=== PATIENT | female | born 1990 | race Asian ===

== ENCOUNTER → 2018-01-19 07:53 | Outpatient (CLI) | payer OTHER, SELFPAY ==
--- NOTE | 2018-01-19 07:58 | DI.RAD.S_ITS ---
PROCEDURE: HL HYSTEROSAPINGOGRAPHY INDICATIONS: INFERTILITY COMPARISON: None. FINDINGS: Patient had a documented negative test prior to the study. Following speculum insertion, a balloon-tip catheter was inserted into the cervical canal, and secured by inflating the balloon. Contrast was then injected into the endometrial canal. Uterus: The uterine cavity appears normal in size and morphology, without synechiae or masses. Fallopian tubes: Right fallopian tube is surgically absent. Left fallopian tube fills with contrast, and appears normal in caliber and morphology. There is ready dispersion of contrast into the peritoneal cavity. IMPRESSION: Surgically absent right fallopian tube. Patent left fallopian tube. Normal appearing uterine cavity. Dictated by: Sanjiv Manriquez M.D. on 01/19/2018 at 10:01 Approved by: Sanjiv Manriquez M.D. on 01/19/2018 at 10:03
--- NOTE | 2018-01-19 09:14 | PM.PROC.1 ---
Procedures Date/Time Date of procedure: 01/19/18 Time of procedure: 09:14 General Procedure description: Patient comes in for a hysterosalpingogram. She signed the consent and understands the risks and benefits. A speculum was placed in the vagina and a single-tooth tenaculum placed on the anterior lip of the cervix. Catheter was threaded through the cervix into the uterus and the balloon inflated with 2 cc of air. Under fluoroscopy the contrast dye was injected. Patient has a known loss of her right tube which was evident. Uterus contour appeared normal. There was normal flow of the dye through the left fallopian tube intra-abdominally. Patient tolerated the procedure well. Complications: none
== END ==
PROVIDERS: Visit Provider Specialist
DX: N97.9 Female infertility, unspecified (principal); Z87.59 Personal history of other complications of pregnancy, childbirth and the puerperium; Z90.79 Acquired absence of other genital organ(s)
CPT/HCPCS: 58340; 74740

== ENCOUNTER → 2018-06-22 15:23 | Outpatient (CLI) | payer OTHER, SELFPAY ==
[2018-06-26 16:30] LABS: Progesterone 3.3 ng/mL
== END ==
PROVIDERS: PCP Specialist; Visit Provider Specialist
DX: N83.9 Noninflammatory disorder of ovary, fallopian tube and broad ligament, unspecified (principal)
CPT/HCPCS: 36415; 84144

== ENCOUNTER → 2018-06-28 15:06 | Outpatient (CLI) | payer OTHER, SELFPAY ==
[2018-06-30 17:22] LABS: Progesterone 7.6 ng/mL
== END ==
PROVIDERS: PCP Specialist; Visit Provider Specialist
DX: N97.0 Female infertility associated with anovulation (principal)
CPT/HCPCS: 36415; 84144

== ENCOUNTER → 2018-07-20 10:02 | Outpatient (CLI) | payer OTHER, SELFPAY ==
[2018-07-20 11:51] LABS: Final Volume 0.5 mL; Initial Volume 3 mL; Semen 30 min. Liquification? Yes
== END ==
PROVIDERS: PCP Specialist; Visit Provider Specialist
DX: N97.0 Female infertility associated with anovulation (principal)
CPT/HCPCS: 58323

== ENCOUNTER → 2018-08-24 10:38 | Outpatient (CLI) | payer OTHER, SELFPAY ==
[2018-08-24 12:11] LABS: Final Volume 0.5 mL; Semen 30 min. Liquification? Yes
== END ==
PROVIDERS: PCP Specialist; Visit Provider Specialist
DX: N97.0 Female infertility associated with anovulation (principal)
CPT/HCPCS: 58323

== ENCOUNTER → 2018-11-17 09:43 | Outpatient (CLI) | payer OTHER, SELFPAY ==
[2018-11-17 11:17] LABS: HCG Quantitative /Beta subunit 12947 mIU/mL
== END ==
PROVIDERS: PCP Specialist; Visit Provider Specialist
DX: Z32.01 Encounter for pregnancy test, result positive (principal)
CPT/HCPCS: 36415; 84702

== ENCOUNTER → 2018-11-19 09:37 | Outpatient (CLI) | payer OTHER, SELFPAY ==
[2018-11-19 11:48] LABS: HCG Quantitative /Beta subunit 20927 mIU/mL
== END ==
PROVIDERS: PCP Specialist; Visit Provider Specialist
DX: Z32.01 Encounter for pregnancy test, result positive (principal)
CPT/HCPCS: 36415; 84702

== ENCOUNTER → 2018-12-06 14:49 | Outpatient (CLI) | payer OTHER, SELFPAY ==
[2018-12-06 15:25] LABS: Add Manual Diff / Slide Review NO; Basophils Absolute Auto 0 /uL (0-100); Basophils Percent Auto 0.4 % (0-2); Eosinophils Absolute Auto 200 /uL (0-450); Eosinophils Percent Auto 1.6 % (2-4); Hematocrit 35.9 % (36-46); Hemoglobin 12.3 g/dL (12.0-16.0); Lymphocytes Absolute Auto 1900 /uL (1100-4500); Lymphocytes Percent Auto 18.3 % (25-40); Mean Corpuscular HGB Conc 34.1 % (30-36); Mean Corpuscular Hemoglobin 31.2 PG (26-34); Mean Corpuscular Volume 91.3 fL (80-100); Monocytes Absolute Auto 800 /uL (0-900); Monocytes Percent Auto 7.5 % (3-14); Neutrophils Absolute Auto 7500 /uL (1500-7000); Neutrophils Percent Auto 72.2 % (50-75); Platelet Count 312 X10^3/uL (150-400); Red Blood Cell Count 3.93 X10^6/uL (4.0-5.2); Red Cell Distribution Width 12.5 % (11.6-14.8); White Blood Cell Count 10.3 X10^3/uL (4.5-11.0)
[2018-12-06 16:00] LABS: Appearance Urine UA CLEAR; Bilirubin Urine UA NEGATIVE (NEGATIVE); Color Urine UA YELLOW; Glucose Urine UA NEGATIVE (Negative); Ketones Urine UA NEGATIVE (NEGATIVE); Leukocyte Esterase Urine UA NEGATIVE (NEGATIVE); Nitrite Urine UA NEGATIVE (Negative); Occult Blood Urine UA TRACE-INTACT (Negative); Protein Urine UA NEGATIVE (Negative); Urobilinogen Urine UA 0.2 E.U./dL (0.2); pH Urine UA 6.5 (4.5-8.0)
[2018-12-06 16:48] LABS: Hepatitis B Surface Antigen NEGATIVE s/c (NEGATIVE); Rubella Antibody IgG 17.6 IU/mL (>15)
[2018-12-06 17:15] LABS: HIV 1 & 2 Ab/Ag 4th Gen Combo NEGATIVE (NEGATIVE); Hep C Virus Ab w/Reflex Quant NEGATIVE s/c (NEGATIVE)
[2018-12-06 17:32] LABS: Urine N gonorrhoeae NOT DETECTED
[2018-12-06 17:42] LABS: Urine Chlamydia NOT DETECTED
[2018-12-25 11:47] LABS: RPR Screen NONREACTIVE
== END ==
PROVIDERS: PCP Specialist; Visit Provider Specialist
DX: Z34.01 Encounter for supervision of normal first pregnancy, first trimester (principal)
CPT/HCPCS: 36415; 80055; 81003; 86787; 86803; 86850; 86900; 86901; 87086; 87389; 87491; 87591

== ENCOUNTER → 2018-12-14 08:08 | Outpatient (CLI) | payer OTHER, SELFPAY ==
[2018-12-14 15:11] LABS: Urine N gonorrhoeae NOT DETECTED
[2018-12-14 15:27] LABS: Urine Chlamydia NOT DETECTED
== END ==
PROVIDERS: PCP Specialist; Visit Provider Specialist
DX: Z11.3 Encounter for screening for infections with a predominantly sexual mode of transmission (principal); Z3A.09 9 weeks gestation of pregnancy
CPT/HCPCS: 87491; 87591

== ENCOUNTER → 2019-02-13 11:18 | Outpatient (CLI) | payer OTHER, SELFPAY ==
[2019-02-18 14:11] LABS: AFP, Serum 45.2 ng/mL; Cigarette Smoker N; Donated Egg N; Donor Egg Age NOT GIVEN; Estriol, Free 1.81 ng/mL; Inhibin A, Dimeric 171 pg/mL; Maternal Weight 174 lbs; Number of Fetuses 1; Previous Pregnancy Down Syndro N; hCG, MoM 0.77; hCG, Serum 18.8 IU/mL
== END ==
PROVIDERS: Visit Provider Specialist
DX: Z34.82 Encounter for supervision of other normal pregnancy, second trimester (principal)
CPT/HCPCS: 36415; 82105; 82677; 84702; 86336

== ENCOUNTER → 2019-02-27 12:09 | Outpatient (CLI) | payer OTHER, SELFPAY ==
--- NOTE | 2019-02-27 12:10 | DI.US.S_ITS ---
PROCEDURE: US OB >= 14 WEEKS FETUS INDICATIONS: ANATOMY OUTSIDE/PRIOR DATING DATA: Last menstrual period (LMP): 10/07/18. LMP-based estimated date of delivery (MINNIE): 07/14/19. First dating scan (date and location): 11/28/18. Estimated date of delivery (MINNIE) from first dating scan: 07/17/19. TECHNIQUE: Real-time scanning was performed of the fetus, with image documentation and biometric measurements. COMPARISON: [facility], [facility]ADDY, US OB > 14 WEEKS, 02/13/2019, 11:07. FINDINGS: General: A single living intrauterine gestation is present. Presentation: Transverse. Placenta: Placental position is posterior, without previa. Amniotic fluid index: 16.1 cm, normal range is 5-24 cm. heart rate: 144 beats per minute. Maternal cervical canal: 3.8 cm long. Normal lower limit is 2.5 cm. biometrics: Biparietal diameter: 20 weeks 2 days Head circumference: 20 weeks 1 day Abdominal circumference: 20 weeks 5 days Femur length: 19 weeks 5 days Estimated gestational age from initial scan: 20 weeks Composite gestational age from present scan: 20 weeks 2 days Estimated weight and percentile: 343 g; 61st percentile Measurement variability for biometric dating: +/- 7 days from 14 weeks to 15 weeks 6 days gestation, +/- 10 days from 16 weeks to 21 weeks 6 days gestation, +/- 2 weeks from 22 weeks to 27 weeks 6 days gestation, +/- 3 weeks for 28 weeks gestation or later. weight reference: 4500 g or EFW >90/95% is considered macrosomia or large for gestational age. EFW <10% is small for gestational age. EFW 5% or less is considered intra-uterine growth restriction. Anatomic survey: Neuro: Ventricles are non-dilated at less than 10 mm. Cisterna magna is normal at 3-11 mm. Cerebellum is normal in size and morphology. Nuchal skin fold: Normal at less than 6 mm between 14-21 weeks gestational age. Face: Nose and lips are normal and the facial profile is not well seen. Spine: No evidence for spina bifida. Heart: 4-chambered heart is present, and cardiac outflow tracts are not well visualized. Diaphragm: Diaphragm is intact. Stomach: Left-sided stomach is present. Kidneys: No hydronephrosis. Normal is less than 5 mm in 2nd trimester, less than 7 mm in 3rd trimester. Cord: 3-vessel cord has orthotopic insertion. Bladder: Normal in size. Extremities: All 4 extremities identified. IMPRESSION: 1. Single living IUP redemonstrated and interval growth is normal. 2. Cardiac outflow tracts and facial profile not well-visualized. Followup recommended. Dictated by: Leroy Ching [facility] Interpreted: Alison Kerr MD on 02/27/2019 at 15:10 Approved by: Alison Kerr MD, PhD on 02/27/2019 at 15:21
== END ==
PROVIDERS: Visit Provider Specialist
DX: Z36.89 Encounter for other specified antenatal screening (principal); Z34.82 Encounter for supervision of other normal pregnancy, second trimester; Z3A.20 20 weeks gestation of pregnancy
CPT/HCPCS: 76811

== ENCOUNTER → 2019-03-15 10:43 | Outpatient (CLI) | payer OTHER, SELFPAY ==
--- NOTE | 2019-03-15 10:44 | DI.US.S_ITS ---
PROCEDURE: US OB FOLLOW UP INDICATIONS: FOLLOW UP ANATOMY FOR NON-VISUALIZED STRUCTURES OUTSIDE/PRIOR DATING DATA: Last menstrual period (LMP): 10/07/18. LMP-based estimated date of delivery (MINNIE): 07/14/19. First dating scan (date and location): 11/28/18. Estimated date of delivery (MINNIE) from first dating scan: 07/17/19. TECHNIQUE: Real-time scanning was performed of the fetus, with image documentation and biometric measurements. COMPARISON: [facility], OB >= 14 WEEKS FETUS, 02/27/2019, 12:20. FINDINGS: General: A single living intrauterine gestation is present. Presentation: Vertex. Placenta: Placental position is posterior, without previa. Amniotic fluid index: 14.2 cm, normal range is 5-24 cm. heart rate: 152 beats per minute. Maternal cervical canal: 3.7 cm long. Normal lower limit is 2.5 cm. Estimated gestational age from initial scan: 22 weeks 2 days. Normal facial profile. Cardiac outflow tracts again suboptimally visualized. IMPRESSION: 1. Single living IUP redemonstrated in today's exam demonstrating normal appearance of the facial profile and the cardiac outflow tracks are again not well-visualized. Followup recommended. Dictated by: Leroy DE LEON Interpreted: Jocy Silva MD on 03/15/2019 at 11:50 Approved by: Jocy Silva M.D. on 03/15/2019 at 16:52
== END ==
PROVIDERS: Visit Provider Specialist
DX: Z36.2 Encounter for other antenatal screening follow-up (principal); Z3A.22 22 weeks gestation of pregnancy
CPT/HCPCS: 76816

== ENCOUNTER → 2019-03-29 08:55 | Outpatient (CLI) | payer OTHER, SELFPAY ==
[2019-03-29 11:22] LABS: Hematocrit 33.9 % (36-46)
[2019-03-29 11:42] LABS: GTT (PREG) 1 Hour PP 50gm Dose 185 mg/dL (76-139)
== END ==
PROVIDERS: Visit Provider Specialist
DX: Z34.82 Encounter for supervision of other normal pregnancy, second trimester (principal)
CPT/HCPCS: 36415; 82950; 85014; 85018

== ENCOUNTER → 2019-04-02 08:07 | Outpatient (CLI) | payer OTHER, SELFPAY ==
[2019-04-02 10:03] LABS: Glucose Fasting 91 mg/dL (70-100)
[2019-04-02 10:15] LABS: Glucose 1 Hour 217 mg/dL (70-170)
[2019-04-02 11:31] LABS: Glucose Tol Interpretation INTERPRETATION
[2019-04-02 11:39] LABS: Glucose 2 Hour 156 mg/dL (70-140)
[2019-04-02 12:15] LABS: Glucose 3 Hour 99 mg/dL (70-115)
== END ==
PROVIDERS: PCP Specialist; Visit Provider Specialist
DX: O99.810 Abnormal glucose complicating pregnancy (principal); Z34.92 Encounter for supervision of normal pregnancy, unspecified, second trimester; Z3A.27 27 weeks gestation of pregnancy
CPT/HCPCS: 36415; 82951; 82952

== ENCOUNTER → 2019-04-04 07:41 | Outpatient (CLI) | payer OTHER, SELFPAY ==
--- NOTE | 2019-04-04 07:43 | DI.US.S_ITS ---
PROCEDURE: OB FOLLOW UP INDICATIONS: RE-EVALUATE HEART OUTSIDE/PRIOR DATING DATA: Last menstrual period (LMP): 10/07/2018. LMP-based estimated date of delivery (MINNIE): 07/14/2019. First dating scan (date and location): 11/28/2018, [facility]. Estimated date of delivery (MINNIE) from first dating scan: 07/17/2019. TECHNIQUE: Real-time scanning was performed of the fetus, with image documentation and biometric measurements. COMPARISON: [facility], OB >= 14 WEEKS FETUS, 02/27/2019, 12:20. [facility], OB > 14 WEEKS, 02/13/2019, 11:07. [facility], OB <= 14 WEEKS FETUS, 12/14/2018, 8:16. [facility], OB <= 14 WEEKS FETUS, 11/28/2018, 16:19. [facility] OB FOLLOW UP, 03/15/2019, 10:54. FINDINGS: General: A single living intrauterine gestation is present. Presentation: Vertex Placenta: Placental position is posterior, without previa. Amniotic fluid index: 16.1 cm, normal range is 5-24 cm. heart rate: 144 beats per minute. Maternal cervical canal: C1-5 cm long. Normal lower limit is 2.5 cm. Other: The four-chamber heart and outflow tracts are normal. IMPRESSION: 1. A single living intrauterine gestation. 2. Normal four-chamber heart and ventricular outflow tracts. Dictated by: Arie Giraldo M.D. on 04/04/2019 at 11:04 Approved by: Arie Giraldo M.D. on 04/04/2019 at 11:09
== END ==
PROVIDERS: PCP Student in an Organized Health Care Education/Training Program; Visit Provider Specialist
DX: Z36.2 Encounter for other antenatal screening follow-up (principal)
CPT/HCPCS: 76816

== ENCOUNTER → 2019-06-14 09:03 | Outpatient (CLI) | payer OTHER, SELFPAY ==
[2019-06-18 15:36] LABS: Bile Acids, Total 2 umol/L (< 20)
== END ==
PROVIDERS: Referring Provider Specialist; Visit Provider Specialist
DX: O99.713 Diseases of the skin and subcutaneous tissue complicating pregnancy, third trimester (principal); L29.9 Pruritus, unspecified
CPT/HCPCS: 36415; 82239

== ENCOUNTER → 2019-06-21 10:22 | Outpatient (CLI) | payer OTHER, SELFPAY ==
[2019-06-22 16:58] LABS: Strep Grp B PCR NEG for Grp B Strep
== END ==
PROVIDERS: Visit Provider Specialist
DX: Z34.03 Encounter for supervision of normal first pregnancy, third trimester (principal)
CPT/HCPCS: 87653

== ENCOUNTER 2019-07-14 16:52 | Outpatient (CLI) | payer OTHER, SELFPAY | END 2019-07-14 17:30 | disposition home or self-care (01) | LOC: LABOR 17:04 → OB 07-15 11:31 | PROVIDERS: Referring Provider Family Medicine; Visit Provider Family Medicine | DX: O26.893 Other specified pregnancy related conditions, third trimester (principal); N89.8 Other specified noninflammatory disorders of vagina; Z3A.39 39 weeks gestation of pregnancy | CPT/HCPCS: 59025; 84112; G0378; G0379 ==

== ENCOUNTER 2019-07-15 22:38 | Observation (INO) | payer OTHER, SELFPAY ==
[2019-07-16] MEDS: MORPHINE 10 MG/ML INJ IV (00:50)
--- NOTE | 2019-07-16 11:10 | PM.OBTRLD ---
Visit Information Visit Information Date of evaluation: 07/16/19 Primary OB Provider: Bambi Goldberg On-call OB Provider: Alethea Wilson Reason for Evaluation: Yes rule out labor Comments/Additional reasons for admission: This patient presents with irregular ctx, no LOF, no VB, +FM, no other complaints, for evaluation for labor. [facility] Medical History (Updated 06/26/19 @ 08:55 by Matt Sky MD) Chicken pox (Resolved) Ectopic , tubal (Resolved) History of irregular menstrual cycles (Chronic) Surgical History (Updated 12/28/17 @ 21:55 by Lynette Blount) Anesthesia (Resolved) History of laparoscopy (Resolved ~02/2014) Family History Father No problems noted. Social History Smoking Status: Never smoker Exam Vital Signs (past 8 hours): VSS per oral report from nursing staff Evaluation Evaluation Baseline heart rate: 125 Variability: Moderate (11-25) monitor accelerations: Present monitor decelerations: Absent Contraction Frequency (minutes): 4 Uterine Contraction Intensity: Mild Category of Tracing: I Cervical dilation (cm): 0 Diagnosis, Plan/Disposition Plan/Disposition Plan: Discharged home with morphine rest and precautions. OB Disposition: home
== END 2019-07-16 00:50 | disposition home or self-care (01) ==
LOC: LABOR 22:39
PROVIDERS: Admitting Provider Obstetrics & Gynecology; Referring Provider Obstetrics & Gynecology; Visit Provider Obstetrics & Gynecology
DX: Z34.83 Encounter for supervision of other normal pregnancy, third trimester (principal); Z3A.39 39 weeks gestation of pregnancy
CPT/HCPCS: 59025; 59050; 96372; G0378; G0379; J2270

== ENCOUNTER 2019-07-17 02:08 | Outpatient (CLI) | payer OTHER, SELFPAY ==
[2019-07-17] MEDS: PROMETHAZINE 25 MG TABLET PO (03:28)
[2019-07-17] MEDS: MORPHINE 10 MG/ML INJ IM (03:28)
== END 2019-07-17 03:34 | disposition home or self-care (01) ==
LOC: LABOR 02:22 → OB 07-18 08:07
PROVIDERS: Referring Provider Specialist; Visit Provider Nurse Practitioner Obstetrics & Gynecology
DX: Z34.93 Encounter for supervision of normal pregnancy, unspecified, third trimester (principal); Z3A.40 40 weeks gestation of pregnancy
CPT/HCPCS: 59025; G0378; G0379; J2270

== ENCOUNTER 2019-07-17 12:09 | Inpatient (IN) | payer OTHER, SELFPAY ==
--- NOTE | 2019-07-17 12:37 | PM.OBHP.1 ---
OB HPI Date/Time Date of admission: 07/17/19 Date Patient Seen: 07/17/19 Time Patient Seen: 12:37 History of Present Condition Chief complaint: Observation of Labor : 2 Para: 0 Estimated Date of Delivery: 07/17/19 Estimated Gestational Age (weeks): 40 Narrative: Lula Mendoza is a 29 year old female admitted in active labor History of Present care: good care, initiated at week # (9), number of visits (14) and pounds weight gain (26) Dating criteria: LMP confirmed by 1st trimester US Ultrasounds: normal mid trimester US Obstetrical complications: none Preadmission Labs Blood type: AB (+) positive -: Antibody screen: negative, GBS status: negative, HBsAG: negative, HIV: negative and RPR/VDLR: negative -: Chlamydia screen: not detected and Gonorrhea screen: not detected -: Rubella: immune and Varicella: immune HCAB: negative Quad screen: Normal 1 hr GTT: 185 3 hr GTT: 1 hr (217), 2 hr (156) and 3 hr (99) Fasting blood glucose: 91 Prior (ies) History: Prior ectopic Evaluation Evaluation Baseline heart rate: 140 Variability: Moderate (11-25) Contraction Frequency (minutes): 6 Uterine Contraction Intensity: Strong/Firm Cervical dilation (cm): 4 Cervical effacement (%): 100 station: 0 PFSH Medical History (Updated 06/26/19 @ 08:55 by Matt Sky MD) Chicken pox (Resolved) Ectopic , tubal (Resolved) History of irregular menstrual cycles (Chronic) Surgical History (Updated 12/28/17 @ 21:55 by Lynette Blount) Anesthesia (Resolved) History of laparoscopy (Resolved ~02/2014) Family History Father No problems noted. Social History Smoking Status: Never smoker Meds Home Medications and Allergies Home Medications Medication Instructions Recorded Confirmed Type prenat.vits,ange,rvp-buvj-befmw 1 tab PO DAILY 03/14/18 06/25/19 History Double Electric breast Pump and #1 each 05/02/19 06/25/19 Rx Supplies Allergies Allergy/AdvReac Type Severity Reaction Status Date / Time clindamycin Allergy Severe Rash Verified 07/16/19 00:32 SURGICAL GLUE Allergy Uncoded 06/25/19 14:57 Review of Systems Review of Systems Narrative: Patient has been in prodromal labor for several days and sent home twice with morphine for sleep which has not worked well for her. No leakage of fluid. Good movement. No headaches, scotomata, epigastric pain. ROS: Yes All systems reviewed with the patient and are negative except as otherwise documented Exam Vital Signs (past 8 hours): BP 131/79, P120, T99.3 Narrative Exam Narrative: HEENT exam within normal limits. Lungs are clear to auscultation and percussion. Heart is regular rate and rhythm no S3-S4 or murmurs. Fetus is vertex. Extremities without edema and nontender. Assessment and Plan Assessment and Plan Assessment and Plan narrative: Patient in active labor at her due date. Anticipate vaginal delivery.
[2019-07-17 13:15] VITALS: BP 134/78
[2019-07-17 14:03] LABS: Add Manual Diff / Slide Review NO; Basophils Absolute Auto 100 /uL (0-100); Basophils Percent Auto 0.4 % (0-2); Eosinophils Absolute Auto 0 /uL (0-450); Eosinophils Percent Auto 0.2 % (2-4); Hematocrit 36.5 % (36-46); Hemoglobin 12.3 g/dL (12.0-16.0); Lymphocytes Absolute Auto 1200 /uL (1100-4500); Mean Corpuscular HGB Conc 33.7 % (30-36); Mean Corpuscular Hemoglobin 31.7 PG (26-34); Mean Corpuscular Volume 94.1 fL (80-100); Monocytes Absolute Auto 1500 /uL (0-900); Monocytes Percent Auto 7.8 % (3-14); Neutrophils Absolute Auto 17000 /uL (1500-7000); Neutrophils Percent Auto 85.6 % (50-75); Platelet Count 266 X10^3/uL (150-400); Red Blood Cell Count 3.88 X10^6/uL (4.0-5.2); Red Cell Distribution Width 13.4 % (11.6-14.8); White Blood Cell Count 19.8 X10^3/uL (4.5-11.0)
--- NOTE | 2019-07-17 14:33 | PM.AN.REGBLK ---
Regional Block Pre-procedure Procedure: Continuous Lumbar Epidural for L&D Attending OB provider: Bambi Goldberg PMH/ROS narrative: at 40 weeks EGA, no complications. Labs: Hct 36.5 % (36-46) 07/17/19 13:45 Plt Count 266 X10^3/uL (150-400) 07/17/19 13:45 Medications: Current Medications Generic Name Dose Route Start Last Admin Trade Name Freq PRN Reason Stop Dose Admin Calcium Carbonate 1,000 mg 07/17/19 12:51 Tums PO Q2HR PRN Dyspepsia Diphenhydramine HCl 25 mg 07/17/19 14:32 Benadryl IV Q10M PRN Pruritis Fentanyl 100 mcg 07/17/19 12:51 Sublimaze IV Q1H PRN Pain, Severe (7-10) Lactated Ringer's 1,000 mls @ 100 mls/hr 07/17/19 13:00 Lactated Ringers IV CONT KIET FENT 2MCG/ML BUPIV 0.125% EPI 200 mcg in 100 mls @ 6 mls/hr 07/17/19 14:45 Fentanyl/Bupiv/Ns 2mcg/Ml - 0.125% EPIDURAL CONT KIET Naloxone HCl 0.2 mg 07/17/19 12:51 Narcan IV Q2MIN PRN Opiate Reversal Ondansetron HCl 4 mg 07/17/19 12:51 Zofran IV Q4HR PRN Nausea And Vomiting Allergies: Allergies Allergy/AdvReac Type Severity Reaction Status Date / Time clindamycin Allergy Severe Rash Verified 07/16/19 00:32 SURGICAL GLUE Allergy Uncoded 06/25/19 14:57 Procedure Insertion date: 07/17/19 Insertion time: 14:42 Prep/Local: betadine x3 Interspace: L2-3 Patient position: sitting Needle: 18 gauge Hustead (CSE: 27g Pencan through Hustead, clear CSF, 0.5mL 0.25% bupiv) Loss of resistance with: saline TAVON at (cm): 5 Catheter placed at SKIN (cm): 10 Catheter in SPACE (cm): 5 Initial Medications TEST DOSE time: 14:43 TEST DOSE: 1.5% lidocaine with epinephrine 1:200k (mL): 3 BOLUS DOSE time: 14:48 BOLUS DOSE (mL): 3 BOLUS DOSE med: 0.125% bupivacaine with fentanyl 10 mcg/mL Infusion INFUSION: 0.125% bupivacaine and with fentanyl 2 mcg/mL Initial rate (mL/hr): 6 Post-procedure Anesthesia time START: 14:38 Anesthesia time END: 02:56 Post-procedure Anesthesia Assessment: Yes CV function: HR/BP stable, Yes Resp function: RR/sat/airway adequate, Yes Post-op hydration adequate, Yes Pain control adequate, Yes Nausea & vomiting absent and Yes Mental status appropriate
[2019-07-17] MEDS: OXYTOCIN PREMIX 30 UNIT/500 ML PLAST..BAG IV (19:07)
[2019-07-17] MEDS: FENT 2MCG/ML BUPIV 0.125% EPI 200 MCG/100 ML PLAST..BAG 6 MCG EPIDURAL (21:24)
--- NOTE | 2019-07-18 03:24 | PM.OBPRVD ---
Labor & Delivery Delivery date: 07/18/19 Intrapartal events: Prolonged 2nd Stage > 2.5 hours Delivery augmentation: pitocin Delivery monitor: external FHT and internal uterine Route of delivery: L&D Laceration Description: Perineal - 2nd Degree Delivery repair: chromic (3 0) Estimated blood loss (mL): 300 Anesthesia type: Epidural Narrative: Patient arrived on Labor and delivery in active labor. She was AROM for clear fluid. She received an epidural catheter for pain control. She did not continue to make significant progress so Pitocin was begun. An internal pressure catheter was placed. heart tones category 1 to category 2 throughout labor. The patient delivered spontaneously, over an intact perineum. The viable female infant was placed on the maternal abdomen. After the cord stopped pulsating the cord was clamped, cut, and cord bloods obtained. The placenta delivered spontaneously, intact, with 3 vessels. There were no cervical or vaginal tears. A second-degree perineal tear was repaired with 3 0 chromic suture in the usual 2 layer fashion. Both infant mother doing well. Baby 1: gender: Female Presentation: vertex position: Right Occiput Anterior Placenta delivery description: Spontaneous cord vessel description: 3 Vessels score (1 min): 9 score (5 min): 9 Plan for aftercare: Routine post vaginal delivery care
[2019-07-18] MEDS: IBUPROFEN 600 MG TABLET PO ×3 (03:52→21:14)
[2019-07-18] MEDS: DERMOPLAST SPRAY 20% 60 ML 1 SPRAY TOP (10:10)
[2019-07-18] MEDS: LANOLIN OINT 7 GM 1 APPLIC TOP (10:10)
[2019-07-18] MEDS: DOCUSATE 100 MG CAPSULE PO (10:11)
--- NOTE | 2019-07-18 21:43 | P.PNOB_ITS ---
Subjective - OB Subjective Patient comments: no complaints [place] baby status: doing well feeding status: breast and bottle feeding Date Patient Seen: 07/18/19 Time Patient Seen: 21:43 Interval history: Patient is doing well . She does complain of some muscle soreness from her prolonged pushing. She is having some difficulty with breast-feeding so there supplementing with formula. She denies any headaches, scotomata, epigastric pain. She is urinating and ambulating well. No nausea. Exam Vital Signs (past 8 hours): Blood pressure 100/57, pulse of 85, temperature 36.2? Narrative Exam Narrative: Abdomen is soft, nontender. Uterus is firm, at U, nontender. Mild lochia. Extremities with trace edema and nontender. Objective Labs Result Diagrams: 07/17/19 13:45 Assessment & Plan Assessment and Plan (1) Vaginal delivery: Status: Acute Current Visit: Yes Plan day: 1 plan OB: routine care Time Spent With Patient Time: Total time spent is greater than 50% in coordination of care (as documented) at patient's floor/unit and/or counseling patient: Time with patient: less than 15 minutes
[2019-07-19 05:55] LABS: Add Manual Diff / Slide Review NO; Basophils Absolute Auto 100 /uL (0-100); Basophils Percent Auto 0.3 % (0-2); Eosinophils Absolute Auto 200 /uL (0-450); Hematocrit 30.9 % (36-46); Hemoglobin 10.2 g/dL (12.0-16.0); Lymphocytes Absolute Auto 2500 /uL (1100-4500); Lymphocytes Percent Auto 13.5 % (25-40); Mean Corpuscular HGB Conc 33.1 % (30-36); Mean Corpuscular Hemoglobin 31.6 PG (26-34); Mean Corpuscular Volume 95.6 fL (80-100); Monocytes Absolute Auto 1600 /uL (0-900); Monocytes Percent Auto 8.8 % (3-14); Neutrophils Absolute Auto 13900 /uL (1500-7000); Neutrophils Percent Auto 76.4 % (50-75); Platelet Count 241 X10^3/uL (150-400); Red Blood Cell Count 3.24 X10^6/uL (4.0-5.2); Red Cell Distribution Width 13.2 % (11.6-14.8); White Blood Cell Count 18.2 X10^3/uL (4.5-11.0)
[2019-07-19] MEDS: IBUPROFEN 600 MG TABLET PO ×2 (08:03→15:21)
[2019-07-19] MEDS: DOCUSATE 100 MG CAPSULE PO (08:04)
--- NOTE | 2019-07-19 08:40 | PM.OBDS.1 ---
Discharge Providers Provider Date of admission: 07/17/19 12:09 Discharge Date: 07/19/19 Consults: 07/17/19 12:51 Consult to Anesthesiology Urgent Comment: Consulting Provider: Anesthesiologist Reason for consultation: epidural Has provider been notified: No 07/19/19 03:22 Consult to Eyewear Manufacturing Supervisor Routine Comment: Discharge provider: Bambi Goldberg MD Summary Hospital Course Date Patient Seen: 07/19/19 Time Patient Seen: 08:41 Hospital Course: Patient arrived on Labor and delivery for induction for postdates. She received an epidural catheter for pain control. She had a spontaneous vaginal delivery of a viable female with repair of second-degree tear. She is working with is consultant for breast-feeding. She is urinating well and ambulatory. She is passing gas. She denies any headaches, scotomata, epigastric pain. She does have some persistent numbness of the left upper outer leg. Peripartum Data Infant Delivery Method: Natural Vaginal Laceration description: Perineal - 2nd Degree Procedures: Prostin followed by Pitocin induction, epidural catheter, spontaneous vaginal delivery, repair of second-degree tear complications: none 1: Gender: Female Disposition of : home Discharge Diagnosis (1) Vaginal delivery: Status: Acute (2) Chronic anemia: Status: Acute Status at Discharge Cognitive/behavioral status at discharge: oriented Functional status at discharge: independent ambulation Overall status at discharge: patient is progressing back to baseline Time Spent with Patient Time attestation: Total time spent providing and/or coordinating discharge services: Objective Labs Result Diagrams: 07/19/19 05:40 Labs: Laboratory Results - last 24 hr 07/19/19 05:40 WBC 18.2 H RBC 3.24 L Hgb 10.2 L Hct 30.9 L MCV 95.6 MCH 31.6 MCHC 33.1 RDW 13.2 Plt Count 241 Neut % (Auto) 76.4 H Lymph % (Auto) 13.5 L Curry % (Auto) 8.8 Eos % (Auto) 1.0 L Baso % (Auto) 0.3 Neut # (Auto) 78340 H Lymph # (Auto) 2500 Curry # (Auto) 1600 H Eos # (Auto) 200 Baso # (Auto) 100 Exam Vital Signs (past 8 hours): Blood pressure 118/65, pulse 77, temperature 35.9? Narrative Exam Narrative: Abdomen is soft, nontender. Uterus is firm, at U, nontender. Repair is intact. Mild lochia. Extremities without edema and nontender. Patient's blood type is AB positive. She is rubella immune. She received the Tdap in the 3rd trimester. Discharge Plan Discharge Plan Patient Disposition: Home Discharge orders & Medications Prescriptions: New docusate sodium [DOK] 100 mg Capsule 100 mg PO DAILY Qty: 20 RF: 0 ibuprofen 600 mg Tablet 600 mg PO Q6HR PRN (Reason: Pain, Mild (1-3)) Qty: 30 RF: 0 ferrous gluconate 324 mg (38 mg iron) tablet 324 mg PO DAILY Qty: 30 RF: 0 Continued (DME) Double Electric breast Pump and Supplies See Rx Instructions .ROUTE .MEDSUPPLY Qty: 1 RF: 0 prenat.vits,ange,mtx-xhkc-myygs tablet 1 tab PO DAILY RF: 0 Follow up/Referrals: Bambi Goldberg MD [Physician] - 1 Month Diet/Activity/Treatments Diet: Regular Activity: Nothing in vagina for 4 weeks Skin/Wound/Dressing Care Report to your healthcare provider any signs of infection, such as:: chills, fever and increased pain
[2019-07-19] MEDS: DERMOPLAST SPRAY 20% 60 ML 1 SPRAY TOP (15:25)
[2019-07-19 15:54] VITALS: BP 122/72; PULSE 103; RESP 20; TEMP 36.4
== END 2019-07-19 18:30 | disposition home or self-care (01) | DRG 807 ==
PROVIDERS: Admitting Provider Specialist; Referring Provider Specialist; Visit Provider Specialist
DX: O70.1 Second degree perineal laceration during delivery (principal); O63.1 Prolonged second stage (of labor); Z37.0 Single live birth; Z3A.40 40 weeks gestation of pregnancy; D64.9 Anemia, unspecified
CPT/HCPCS: 01967; 36415; 59025; 59050; 59400; 85025; 86850; 86900; 86901; 96372; G0378; G0379; J2270; J2590

== ENCOUNTER → 2019-10-30 13:14 | Outpatient (CLI) | payer OTHER, SELFPAY ==
--- NOTE | 2019-10-30 13:16 | DI.US.S_ITS ---
PROCEDURE: US ABDOMEN LIMITED INDICATIONS: ABD PAIN TECHNIQUE: Real-time focused scanning was performed of the abdomen, with image documentation. COMPARISON: None. FINDINGS: Normal hepatic parenchymal echogenicity, echotexture, contour, and size. No intrahepatic biliary ductal dilatation. No hepatic mass. The gallbladder is tightly contracted around multiple stones. Gallbladder wall is at the upper limits of normal for thickness measuring approximately 5 mm. No pericholecystic fluid. Sonographic Blair's sign is reported as negative. Common duct measures approximately 5 mm in caliber. Visualized portions of the pancreas are within normal limits IMPRESSION: Tightly contracted gallbladder with numerous gallstones. Borderline gallbladder wall thickening. Although findings are not reflective of acute cholecystitis, surgical consultation should nonetheless be considered. Dictated by: Rick Forbes M.D. on 10/30/2019 at 14:35 Approved by: Rick Forbes M.D. on 10/30/2019 at 14:38
== END ==
PROVIDERS: PCP Student in an Organized Health Care Education/Training Program; Referring Provider Specialist; Visit Provider Specialist
DX: R10.10 Upper abdominal pain, unspecified (principal); K80.20 Calculus of gallbladder without cholecystitis without obstruction
CPT/HCPCS: 76705

== ENCOUNTER → 2019-12-06 14:16 | Outpatient (CLI) | payer OTHER, SELFPAY ==
[2019-12-07 08:32] LABS: COVID19 Sendout Not Detected (Not Detect)
== END ==
PROVIDERS: PCP Student in an Organized Health Care Education/Training Program; Visit Provider Physician Assistant
DX: Z11.59 Encounter for screening for other viral diseases (principal)
CPT/HCPCS: 87635

== ENCOUNTER 2019-12-09 06:49 | Day surgery (SDC) | payer OTHER, SELFPAY ==
[2019-11-25 15:19] VITALS: BMI 26.5
[2019-12-09] VITALS (12 sets, daily range): BP systolic 81–132; BP diastolic 32–83; PULSE 99–112; RESP 4–18; TEMP 36.3–37; O2SAT 84–100; BMI 25.2
--- NOTE | 2019-12-09 | PATH_ITS ---
[facility] Accession Number: [id number] . 01 Material submitted: . gallbladder - GALLBLADDER AND CONTENTS . 01 Clinical history: . LAP MANDA . 02 Diagnosis: Gallbladder and Contents, Cholecystectomy: Chronic cholecystitis with cholelithiasis and cholesterolosis. Negative for dysplasia and malignancy. MRV 12/11/2019 1316 Local . 02 Electronically signed: . Tosin Nye MD, Pathologist NPI- [id number] . 01 Gross description: . Received in formalin, labeled with the patient's name, MRN and gallbladder and contents, is an intact 6.5 x 2.2 x 2.0 cm gallbladder with an attached cystic duct measuring 0.5 cm in length by 0.5 cm in diameter. The cystic duct is obstructed by a 0.4 cm yellow-young calculus. The serosal surface is purple-pink and smooth. The gallbladder is opened to reveal a green-young viscous bile admixed with multiple yellow-young calculi ranging in size from 0.2 cm to 0.6 cm in greatest dimension. The mucosal surface is young-yellow with yellow streaks. No discrete lesions are identified. The wall thickness measures up to 0.4 cm. No lymph nodes are identified. The shave of the cystic duct margin (inked black) and sales representative education courses sections of the gallbladder body and gallbladder fundus are submitted in cassette A1. ([id number]) /MRV 12/10/2019 1305 Local . 02 Pathologist provided ICD-10: K80.60 . 02 CPT . 353279 Performed at: [address] [facility], [place], [place] [id number] MD Torres Piedra MD Phone: [phone] Performed at: 02 [facility] [place] [id number] [place] [id number] MD Tosin Nye MD Phone: [phone]
[2019-12-09] MEDS: ACETAMINOPHEN 325 MG TABLET 975 MG PO (07:30)
[2019-12-09] MEDS: LACTATED RINGERS 1,000 ML 42 ML IV ×2 (07:31→09:17)
--- NOTE | 2019-12-09 07:40 | PM.HP.1 ---
History of Present Illness History of Present Illness Date Patient Seen: 12/09/19 Time Patient Seen: 07:40 Chief complaint: LAP MANDA Narrative: Patient is a woman with symptomatic gallbladder disease with gallstones here for laparoscopic cholecystectomy Patient History Medical History Anemia (Acute) Chicken pox (Resolved) Ectopic , tubal (Resolved) Elevated cholesterol (Acute) Gallstones (Acute) Headache, migraine (Acute) History of irregular menstrual cycles (Chronic) UTI (urinary tract infection) (Acute) Surgical History Anesthesia (Resolved) History of laparoscopy (Resolved ~02/2014) Family & Social History Family History Father No problems noted. Mother Lung cancer Grandmother Lung cancer Social History: household members spouse,children Tobacco & Substance use: Smoking Status Never smoker alcohol intake former Substance Use Type does not use Meds Home Medications and Allergies Home Medications Medication Instructions Recorded Confirmed Type prenat.vits,ange,drh-wctq-alhcc 2 tab PO DAILY 03/14/18 12/09/19 History Double Electric breast Pump and #1 each 05/02/19 11/06/19 Rx Supplies Allergies Allergy/AdvReac Type Severity Reaction Status Date / Time clindamycin Allergy Severe Rash Verified 12/09/19 07:12 SURGICAL GLUE Allergy Rash Uncoded 11/25/19 15:27 Review of Systems Review of Systems Narrative: Intermittent right upper quadrant epigastric pain ROS: Yes All systems reviewed with the patient and are negative except as otherwise documented Exam Vital Signs (past 8 hours): - 12/09/19 07:23 Temperature 98.2 F Pulse Rate 111 H Respiratory Rate 16 Blood Pressure 132/83 Pulse Oximetry 98 Oxygen Delivery Method Room Air Narrative Exam Narrative: Pleasant cooperative patient no apparent distress. Lungs are clear to auscultation. No rales or rhonchi. Heart regular rate and rhythm no murmur gallop. Abdomen is soft nontender without mass. No obvious hernias. Patient is alert and oriented x3. Assessment & Plan Assessment & Plan narrative: Patient with gallbladder disease and gallstones for laparoscopic cholecystectomy. The risks and benefits have been discussed with her as per my note on 11/05. All questions were answered.
--- NOTE | 2019-12-09 07:42 | PM.PREOP ---
Pre-operative Note COVID-19 COVID-19 status: Negative Result date/Date tested (Pos, Neg/Pending): 12/06/19 Interval Note History & Physical reviewed/Exam performed by Physician: Yes Changes to H&P: No
[2019-12-09] MEDS: CEFAZOLIN 2 GM/100 ML FROZ.PIGGY IV (07:55)
--- NOTE | 2019-12-09 08:19 | SUR.OPER ---
Supine on padded OR bed, head on pillow, arms secured on padded arm boards at <90 degrees abduction, legs uncrossed, safety belt at thigh, tape over blanket over lower legs.
[2019-12-09] MEDS: BUPIVACAINE 0.5% (PF) VIAL 30 ML INJ (08:31)
[2019-12-09] MEDS: BACITRACIN OINT 0.9 GM PCKT 1 APPLIC TOP (09:19)
--- NOTE | 2019-12-09 09:36 | PM.OP.1 ---
Operative Date/Time/Diagnoses Date of procedure: 12/09/19 Time of procedure: 09:36 Pre-op diagnosis: Cholelithiasis cholecystitis Post-op diagnosis: same Procedure & Clinicians Procedure: Laparoscopic cholecystectomy Same procedure as scheduled: Yes Indications: Epigastric pain related to gallbladder disease. Ultrasound consistent with gallstones Surgeon: Abran Wynn Click Yes if Unassisted: Yes Anesthesia Type: General Operative Notes Findings: Mildly inflamed gallbladder. Otherwise normal anatomy. Closure Type: primary Specimen(s): other (Gallbladder) Prosthetic devices, grafts, tissues, transplants, or devices: None Estimated Blood Loss (mL): 5 Blood products transfused: none Procedure in detail: The patient was placed supine on the operating room table and underwent general endotracheal anesthesia. The patient was prepped and draped in the usual fashion. Local anesthetic was infiltrated near the umbilicus and curvilinear incision made and carried down through fascia into the peritoneal cavity. Stay sutures of 0 Vicryl were placed in the fascia. A 12 mm port was placed. The abdomen was insufflated. The patient was repositioned. Local anesthetic was infiltrated in 3 areas under the right costal margin and 3 small incisions made followed by placing 3 5 mm ports under direct laparoscopic camera vision internally. The gallbladder was grasped and elevated. Dissection was begun near its end. A ductal structure singular nature going directly the gallbladder was identified as were multiple vascular structures that appeared to be possibly venous and arterial. These were all out from 1 another. Multiple clips were placed on the vascular structures and they were divided. Two were left on each structure. The patient had 4 clips placed on the cystic duct and it was divided leaving 3 in the patient.. The gallbladder was then dissected from its bed in the liver using cautery. There was no significant bleeding. It was detached and removed through the umbilical port without difficulty or spillage. The right upper quadrant irrigated and suctioned free of fluid. There was no bleeding.. the port sites were all irrigated. The stay sutures at the umbilicus were elevated. A 2 0 PDS suture was placed between them. The Vicryl and PDS sutures were then tied. The skin in all areas was closed with interrupted 4 0 Vicryl subcuticular stitches. Due to the patient's allergy to tape and to surgical glue 6 0 nylon sutures were placed as well to bring the skin together. Antibiotic ointment is applied to the incisions. As the patient said she could tolerate Band-Aids, Band-Aids were placed and the patient was awakened, extubated and taken to the recovery area in good condition. Complications: none Post-operative Condition: stable Disposition: PACU Plan for aftercare: Follow-up in the office
--- NOTE | 2019-12-09 09:52 | SUR.PHASEI ---
Pt arrived with oral airway and nasal trumpet placed in mouth by Dr. Magaña, initially on nasal cannula changed to NRM and 02 increased to 15 then 10/l. Then when airway out, changed to nasal cannula at 4/l. Now room air trial being done. Taking ice chips well.
[2019-12-09] MEDS: OXYCODONE IR 5 MG TABLET PO ×2 (10:00→11:49)
== END 2019-12-09 12:04 | disposition home or self-care (01) ==
PROVIDERS: PCP Student in an Organized Health Care Education/Training Program; Referring Provider Specialist; Visit Provider Specialist
PROC: 0FT44ZZ Resection of Gallbladder, Percutaneous Endoscopic Approach (ICD-10-PCS; CPT 47562; principal; 2019-12-09 07:45)
DX: K80.10 Calculus of gallbladder with chronic cholecystitis without obstruction (principal); D64.9 Anemia, unspecified; E78.00 Pure hypercholesterolemia, unspecified; K21.9 Gastro-esophageal reflux disease without esophagitis
CPT/HCPCS: 47562; J0330; J0690; J1100; J1885; J2250; J2405; J2704; J3010

== ENCOUNTER → 2020-01-31 14:45 | Outpatient (CLI) | payer OTHER, SELFPAY ==
[2020-01-31 15:54] LABS: Alanine Aminotransferase 27 IU/L (<35); Albumin 4.5 g/dL (3.5-5.0); Albumin Globulin Ratio 1.4 (1.0-2.8); Alkaline Phosphatase 90 U/L (38-126); Aspartate Aminotransferase 26 IU/L (14-36); Bilirubin Total 0.4 mg/dL (0.2-1.3); Bilirubin Unconjugated 0.3 mg/dL (0.0-1.1); Gamma Glutamyl Transpeptidase 57 U/L (12-43); Globulin 3.2 g/dL (1.7-4.1); HEMOLYSIS < 15 (0-50); Total Protein 7.7 g/dL (6.3-8.2)
== END ==
PROVIDERS: PCP Student in an Organized Health Care Education/Training Program; Referring Provider Student in an Organized Health Care Education/Training Program; Visit Provider Student in an Organized Health Care Education/Training Program
DX: L29.9 Pruritus, unspecified (principal)
CPT/HCPCS: 36415; 80076; 82977

== ENCOUNTER → 2020-04-23 10:12 | Outpatient (CLI) | payer OTHER, SELFPAY ==
[2020-04-23 12:51] LABS: HCG Quantitative /Beta subunit 28.3 mIU/mL
== END ==
PROVIDERS: PCP Student in an Organized Health Care Education/Training Program; Referring Provider Specialist; Visit Provider Specialist
DX: N91.2 Amenorrhea, unspecified (principal); Z87.59 Personal history of other complications of pregnancy, childbirth and the puerperium
CPT/HCPCS: 36415; 84702

== ENCOUNTER → 2020-04-25 10:47 | Outpatient (CLI) | payer OTHER, SELFPAY ==
[2020-04-25 11:44] LABS: HCG Quantitative /Beta subunit 112.5 mIU/mL
== END ==
PROVIDERS: PCP Student in an Organized Health Care Education/Training Program; Referring Provider Specialist; Visit Provider Specialist
DX: N91.2 Amenorrhea, unspecified (principal); Z87.59 Personal history of other complications of pregnancy, childbirth and the puerperium
CPT/HCPCS: 36415; 84702

== ENCOUNTER → 2020-05-13 12:52 | Outpatient (CLI) | payer OTHER, SELFPAY ==
[2020-05-13 12:57] LABS: Bacteria Urine None Seen
[2020-05-13 14:09] LABS: Appearance Urine UA CLEAR; Bilirubin Urine UA NEGATIVE (NEGATIVE); Color Urine UA YELLOW; Glucose Urine UA NEGATIVE (Negative); Ketones Urine UA NEGATIVE (NEGATIVE); Leukocyte Esterase Urine UA 2+ (NEGATIVE); Nitrite Urine UA NEGATIVE (Negative); Occult Blood Urine UA TRACE-INTACT (Negative); Protein Urine UA NEGATIVE (Negative); Specific Gravity Urine UA <=1.005 (1.000-1.035); Urobilinogen Urine UA 0.2 E.U./dL (0.2)
[2020-05-13 14:37] LABS: RBC Urine 1-5/HPF (0-5/HPF); WBC Urine 5-10/HPF (0-5/HPF)
[2020-05-13 14:38] LABS: Culture Indicated Urine Specimen Cultured
== END ==
PROVIDERS: PCP Student in an Organized Health Care Education/Training Program; Referring Provider Obstetrics & Gynecology; Visit Provider Obstetrics & Gynecology
DX: O26.899 Other specified pregnancy related conditions, unspecified trimester (principal); R30.0 Dysuria
CPT/HCPCS: 81001; 87077; 87086; 87186

== ENCOUNTER → 2020-06-12 16:20 | Outpatient (CLI) | payer OTHER, SELFPAY ==
[2020-06-12 18:07] LABS: Add Manual Diff / Slide Review NO; Basophils Absolute Auto 100 /uL (0-100); Basophils Percent Auto 0.5 % (0-2); Eosinophils Absolute Auto 300 /uL (0-450); Eosinophils Percent Auto 2.7 % (2-4); Hematocrit 36.8 % (36-46); Hemoglobin 12.5 g/dL (12.0-16.0); Lymphocytes Absolute Auto 2200 /uL (1100-4500); Lymphocytes Percent Auto 22.9 % (25-40); Mean Corpuscular HGB Conc 34.1 % (30-36); Mean Corpuscular Hemoglobin 31.9 PG (26-34); Mean Corpuscular Volume 93.7 fL (80-100); Monocytes Absolute Auto 600 /uL (0-900); Monocytes Percent Auto 6.4 % (3-14); Neutrophils Absolute Auto 6500 /uL (1500-7000); Neutrophils Percent Auto 67.5 % (50-75); Platelet Count 285 X10^3/uL (150-400); Red Blood Cell Count 3.93 X10^6/uL (4.0-5.2); Red Cell Distribution Width 12.5 % (11.6-14.8); White Blood Cell Count 9.7 X10^3/uL (4.5-11.0)
[2020-06-12 18:24] LABS: Cholesterol 222 mg/dL (140-199); HDL Cholesterol 79 mg/dL (40-60); LDL Cholesterol Calculated 111 mg/dL (<100); Triglycerides 160 mg/dL (35-150)
[2020-06-12 18:25] LABS: Hemoglobin A1C% w Est Avg Glu 4.8 % (4.0-6.0)
[2020-06-12 18:35] LABS: Appearance Urine UA CLEAR; Bilirubin Urine UA NEGATIVE (NEGATIVE); Color Urine UA YELLOW; Glucose Urine UA NEGATIVE (Negative); Ketones Urine UA NEGATIVE (NEGATIVE); Leukocyte Esterase Urine UA NEGATIVE (NEGATIVE); Nitrite Urine UA NEGATIVE (Negative); Occult Blood Urine UA TRACE-LYSED (Negative); Protein Urine UA NEGATIVE (Negative); Urobilinogen Urine UA 0.2 E.U./dL (0.2); pH Urine UA 5.5 (4.5-8.0)
[2020-06-13 03:40] LABS: RPR Screen Non Reactive (Non Reactive)
[2020-06-13 08:28] LABS: Varicella IgG Antibody 1212 index (Immune >165)
[2020-06-15 04:18] LABS: Chlamydia trachomatis NAA Negative (Negative); Neisseria gonorrhoeae NAA Negative (Negative)
[2020-06-15 16:29] LABS: Hepatitis B Surface Antigen NEGATIVE s/c (NEGATIVE)
[2020-06-15 16:41] LABS: HIV 1 & 2 Ab/Ag 4th Gen Combo NEGATIVE (NEGATIVE); Hep C Virus Ab w/Reflex Quant NEGATIVE s/c (NEGATIVE)
== END ==
PROVIDERS: PCP Student in an Organized Health Care Education/Training Program; Referring Provider Specialist; Visit Provider Specialist
DX: Z34.81 Encounter for supervision of other normal pregnancy, first trimester (principal); E78.00 Pure hypercholesterolemia, unspecified
CPT/HCPCS: 36415; 80055; 80061; 81003; 83036; 86787; 86803; 86850; 86900; 86901; 87086; 87389; 87491; 87591

== ENCOUNTER → 2020-08-06 10:11 | Outpatient (CLI) | payer OTHER, SELFPAY ==
[2020-08-08 22:12] LABS: Calc Gestational Age Ultrasound (.); Estriol, Free 1.51 ng/mL (.); Inhibin A, Dimeric 111.23 pg/mL (.); Inhibin A, MoM 0.75 (.); Maternal Ethnicity Other (.); Maternal Weight 166 lbs (.); Number of Fetuses No (.); OSBR Risk 1 IN 4529 (.); Results Report (.); Test Results *Screen Negative* (.); hCG, MoM 0.84 (.); hCG, Serum 21060 mIU/mL (.)
== END ==
PROVIDERS: PCP Student in an Organized Health Care Education/Training Program; Referring Provider Specialist; Visit Provider Specialist
DX: Z34.82 Encounter for supervision of other normal pregnancy, second trimester (principal); Z3A.18 18 weeks gestation of pregnancy
CPT/HCPCS: 36415; 82105; 82677; 84702; 86336

== ENCOUNTER → 2020-08-19 12:55 | Outpatient (CLI) | payer OTHER, SELFPAY ==
--- NOTE | 2020-08-19 12:56 | DI.US.S_ITS ---
PROCEDURE: US OB >= 14 WEEKS FETUS INDICATIONS: ANATOMY OUTSIDE/PRIOR DATING DATA: Last menstrual period (LMP): 03/18/2020. LMP-based estimated date of delivery (MINNIE): 01/04/2021 . First dating scan (date and location): 06/12/2020 . Estimated date of delivery (MINNIE) from first dating scan: 12/31/2020 . TECHNIQUE: Real-time scanning was performed of the fetus, with image documentation and biometric measurements. Endovaginal scanning: No COMPARISON: None. FINDINGS: General: A single living intrauterine gestation is present. Presentation: Variable. Placenta: Placental position is posterior , without previa. Amniotic fluid index: 14.9 cm, normal range is 5-24 cm. heart rate: 145 beats per minute. Maternal cervical canal: 4.7 cm long. Normal lower limit is 2.5 cm. biometrics: Biparietal diameter: 21 weeks 3 days Head circumference: 20 weeks 6 days Abdominal circumference: 21 weeks Femur length: 20 weeks Estimated gestational age from initial scan: 20 weeks 6 days Composite gestational age from present scan: 20 weeks 6 days Estimated weight and percentile: 365 g, 30 second percentile Measurement variability for biometric dating: +/- 7 days from 14 weeks to 15 weeks 6 days gestation, +/- 10 days from 16 weeks to 21 weeks 6 days gestation, +/- 2 weeks from 22 weeks to 27 weeks 6 days gestation, +/- 3 weeks for 28 weeks gestation or later. weight reference: 4500 g or EFW >90/95% is considered macrosomia or large for gestational age. EFW <10% is small for gestational age. EFW 5% or less is considered intra-uterine growth restriction. Anatomic survey: Neuro: Ventricles are non-dilated at less than 10 mm. Cisterna magna is normal at 3-11 mm. Cerebellum is normal in size and morphology. Nuchal skin fold: Normal at less than 6 mm between 14-21 weeks gestational age. Face: Nose and lips, facial profile are normal. Spine: No evidence for spina bifida. Heart: 4-chambered heart is present, with normal ventricular outflow tracts. Diaphragm: Diaphragm is intact. Stomach: Left-sided stomach is present. Kidneys: No hydronephrosis. Normal is less than 5 mm in 2nd trimester, less than 7 mm in 3rd trimester. Cord: 3-vessel cord has orthotopic insertion. Marginal placental cord insertion site roughly 9 mm from the placental edge. Bladder: Normal in size. Extremities: All 4 extremities identified. IMPRESSION: 1. Single living IUP redemonstrated and interval growth is normal. 2. Normal anatomy. 3. Marginal placental cord insertion site. Dictated by: Leroy DE LEON Interpreted: Sandhya Estrada MD on 08/19/2020 at 16:56 Transcribed by: DIXIE on 08/19/2020 at 16:59 Approved by: Sandhya Estrada M.D. on 08/19/2020 at 17:12
== END ==
PROVIDERS: PCP Student in an Organized Health Care Education/Training Program; Referring Provider Specialist; Visit Provider Specialist
DX: Z34.82 Encounter for supervision of other normal pregnancy, second trimester (principal); Z3A.20 20 weeks gestation of pregnancy
CPT/HCPCS: 76811

== ENCOUNTER → 2020-09-23 07:24 | Outpatient (CLI) | payer OTHER, SELFPAY ==
[2020-09-23 08:58] LABS: Hematocrit 34.3 % (36-46); Hemoglobin 11.6 g/dL (12.0-16.0)
[2020-09-23 09:14] LABS: GTT (PREG) 1 Hour PP 50gm Dose 168 mg/dL (76-139)
== END ==
PROVIDERS: PCP Student in an Organized Health Care Education/Training Program; Referring Provider Specialist; Visit Provider Specialist
DX: Z34.82 Encounter for supervision of other normal pregnancy, second trimester (principal); Z3A.25 25 weeks gestation of pregnancy
CPT/HCPCS: 36415; 82950; 85014; 85018

== ENCOUNTER → 2020-10-12 07:03 | Outpatient (CLI) | payer OTHER, SELFPAY ==
[2020-10-12 08:14] LABS: Glucose Fasting Gestational 89 mg/dL (76-95)
[2020-10-12 10:29] LABS: Glucose Tol Interp,Gestational INTERPRETATION
[2020-10-12 10:29] LABS: Glucose 1 Hour Gest 199 mg/dL (76-180)
[2020-10-12 11:22] LABS: Glucose 2 Hour Gest 163 mg/dL (76-155)
[2020-10-12 11:59] LABS: Glucose 3 Hour Gest 132 mg/dL (76-140)
== END ==
PROVIDERS: PCP Student in an Organized Health Care Education/Training Program; Referring Provider Specialist; Visit Provider Specialist
DX: Z34.90 Encounter for supervision of normal pregnancy, unspecified, unspecified trimester (principal); R73.09 Other abnormal glucose
CPT/HCPCS: 36415; 82951; 82952

== ENCOUNTER 2020-12-02 11:51 | Emergency (ER) | payer OTHER, SELFPAY ==
[2020-12-02] VITALS (12 sets, daily range): BP systolic 108–133; BP diastolic 61–72; PULSE 103–122; RESP 19–24; TEMP 36.7; O2SAT 92–96
--- NOTE | 2020-12-02 12:10 | DI.RAD.S_ITS ---
PROCEDURE: XR CHEST 1V INDICATIONS: SHORTNESS OF BREATH/ COVID + TECHNIQUE: One view of the chest was acquired. COMPARISON: None. FINDINGS: Surgical changes and devices: None. Lungs and pleura: 6 patchy airspace opacities noted in the lungs bilaterally. No pleural effusions or pneumothorax. Mediastinum: Mediastinal contours appear normal. Heart size is normal. Bones and chest wall: No suspicious bony lesions. Overlying soft tissues appear unremarkable. IMPRESSION: Bilateral lung multilobar pneumonia. Dictated by: Alison Kerr MD, PhD on 12/02/2020 at 12:39 Approved by: Alison Kerr MD, PhD on 12/02/2020 at 12:39
[2020-12-02] MEDS: SODIUM CHLORIDE 0.9% 1,000 ML 1000 ML IV (12:18)
[2020-12-02 12:43] LABS: Add Manual Diff / Slide Review NO; Basophils Absolute Auto 0 /uL (0-100); Basophils Percent Auto 0.3 % (0-2); Eosinophils Absolute Auto 0 /uL (0-450); Eosinophils Percent Auto 0.3 % (2-4); Hematocrit 35.1 % (36-46); Hemoglobin 11.8 g/dL (12.0-16.0); Lymphocytes Absolute Auto 700 /uL (1100-4500); Lymphocytes Percent Auto 8.7 % (25-40); Mean Corpuscular HGB Conc 33.5 % (30-36); Mean Corpuscular Hemoglobin 31.3 PG (26-34); Mean Corpuscular Volume 93.6 fL (80-100); Monocytes Absolute Auto 400 /uL (0-900); Monocytes Percent Auto 4.6 % (3-14); Neutrophils Absolute Auto 6800 /uL (1500-7000); Neutrophils Percent Auto 86.1 % (50-75); Platelet Count 157 X10^3/uL (150-400); Red Blood Cell Count 3.75 X10^6/uL (4.0-5.2); Red Cell Distribution Width 12.6 % (11.6-14.8); White Blood Cell Count 7.9 X10^3/uL (4.5-11.0)
[2020-12-02 13:02] LABS: Alanine Aminotransferase 27 IU/L (<35); Albumin 3.6 g/dL (3.5-5.0); Albumin Globulin Ratio 1.1 (1.0-2.8); Alkaline Phosphatase 158 U/L (38-126); Aspartate Aminotransferase 70 IU/L (14-36); BUN Creatinine Ratio 11.8 (6-22); Bilirubin Total 0.9 mg/dL (0.2-1.3); Blood Urea Nitrogen 6 mg/dL (7-17); Calcium 9.1 mg/dL (8.4-10.2); Carbon Dioxide 18 mmol/L (22-32); Chloride 105 mmol/L (98-107); Creatine Kinase 258 U/L (30-135); Estimated Glomerular Filt Rate > 60.0 mL/min (>60); Globulin 3.4 g/dL (1.7-4.1); Glucose 117 mg/dL (70-100); HEMOLYSIS < 15 (0-50); Lipase 83 U/L (23-300); Potassium 3.8 mmol/L (3.4-5.1); Sodium 132 mmol/L (137-145)
--- NOTE | 2020-12-02 13:07 | ED_ITS ---
HPI - Fever <Leroy Segovia PA-C - Last Filed: 12/02/20 18:31> General Chief Complaint: Fever Stated Complaint: covid +/cough/low ox x3days Time Seen by Provider: 12/02/20 12:07 Source: patient Mode of arrival: Ambulatory Limitations: no limitations History of Present Illness HPI Narrative: Lula presents today with chief complaint of low oxygen saturation. She reports that she was being seen by her PCP's office and the triage nurse noticed that her oxygen saturation was 92%. She is COVID positive and is 35 weeks . She reports that she is otherwise healthy and has no known significant past medical problems. She denies any significant difficulty breathing but does endorse a cough and continued fever for the last few days that has been controlled with Tylenol. She reports a T-max of 102? F 2 days ago. She tested positive for COVID last week. She is not vaccinated for COVID at this time. She does not have any other acute concerns or complaints including no abdominal pain vaginal bleeding or any other issues at this time. Related Data Home Medications Medication Instructions Recorded Confirmed prenat.vits,ange,[id number] 2 tab PO DAILY 03/14/18 11/06/20 Previous Rx's Medication Instructions Recorded Double Electric Breast Pump #1 ea 10/01/20 Allergies Allergy/AdvReac Type Severity Reaction Status Date / Time clindamycin Allergy Severe Rash Verified 12/02/20 12:00 SURGICAL GLUE Allergy Intermediate Rash Uncoded 08/06/20 09:44 Review of Systems <Leroy Segovia PA-C - Last Filed: 12/02/20 18:31> Review of Systems Narrative: As per HPI Patient History <Leroy Segovia PA-C - Last Filed: 12/02/20 18:31> Medical History (Updated 12/02/20 @ 16:47 by Leory Segovia PA-C) Anemia (~07/2019) Chicken pox (~1994) Cholelithiasis Ectopic (~2013) Ectopic , tubal (~02/2014) Elevated cholesterol (~04/2014) Gallstones (~11/2019) Headache, migraine (~2015) History of irregular menstrual cycles Pruritus Rash UTI (urinary tract infection) (~04/2020) Vaginal delivery (07/18/19) Surgical History (Updated 06/05/20 @ 13:57 by Miranda Smith RN) Anesthesia History of laparoscopy (~02/2014) Hx laparoscopic cholecystectomy (~11/2019) Family History (Updated 06/05/20 @ 14:45 by Miranda Smith RN) Father Hypertension Mother Lung cancer Grandmother Lung cancer Smoker Diabetes mellitus Grandfather Triplet Grandmother Unknown family medical history Grandfather No problems noted. Family/Other Diabetes mellitus Social History marital status: number of children: 1 household members: spouse and children lives independently: Yes caregiver/support person: No housing: house pets and animals: Yes (1 dog: safe/aware. ) education level: college (BA Accounting.) occupational status: employed current occupational exposures/hazards: No andre/yarsanism: [employer] special andre needs: No seatbelt use: always do you feel safe at home: Yes Smoking Status: Never smoker second hand exposure: No alcohol intake: former (None since , prior to 2018. ) substance use type: does not use during the past year weight has: decreased > 10 lbs (r/t gall bladder issues. ) well-balanced diet: daily or most days daily servings fruits/ve-4 caffeine: Yes (Decaf, occasional tea. ) Type(s) of exercise: walking frequency: 3-4 times per week duration: 15-30 minutes/day Smoking Status: Never smoker alcohol intake frequency: 0-2 drinks per day Substance Use Type: does not use Exam <Leroy Segovia PA-C - Last Filed: 12/02/20 18:31> Narrative Exam Narrative: Exam Narrative: Const General: cooperative, healthy appearing, comfortable, no acute distress, well developed and well groomed Nutritional Appearance: average body habitus Orientation: alert and oriented x3 HENMT Head: normal to inspection and atraumatic Ears: hearing grossly normal bilaterally Nose: external nose normal and nares normal Face and sinus: normal facial exam Neck Neck: normal visual inspection and supple Resp Effort & Inspection: normal respiratory effort, able to speak in complete sentences, no audible wheezes, not labored, no nasal flaring and no respiratory distress, mild rhonchi bilaterally Cardiac Tachycardic rate, regular rhythm, no discernible murmurs, rubs or gallops, no lower extremity swelling or edema or calf tenderness. Neuro General: alert, oriented x3, gait normal, tone normal and moves all extremities Cognition: normal cognition Speech: speech normal Gait: normal gait Psych Appearance: grossly normal and well kempt Mental Status: mental status grossly normal Speech and Movement: speech and movement normal Mood: congruent mood Affect: normal affect Initial Vital Signs Initial Vital Signs: Vital Signs Temperature 98.1 F 12/02/20 11:56 Pulse Rate 122 H 12/02/20 11:56 Respiratory Rate 24 12/02/20 11:56 Blood Pressure 108/65 12/02/20 11:56 Pulse Oximetry 95 12/02/20 11:56 <Ranjith Martin DO - Last Filed: 12/02/20 18:35> Initial Vital Signs Initial Vital Signs: Vital Signs Temperature 98.1 F 12/02/20 11:56 Pulse Rate 122 H 12/02/20 11:56 Respiratory Rate 24 12/02/20 11:56 Blood Pressure 108/65 12/02/20 11:56 Pulse Oximetry 95 12/02/20 11:56 Course <Leroy Segovia PA-C - Last Filed: 12/02/20 18:31> Orders Ordered: ED Orders 12/02/20 12:10 XR chest 1V Stat EKG-12 Lead Stat 12/02/20 12:21 Complete Blood Count AUTO DIFF Stat Comprehensive Metabolic Panel Stat Lipase Stat Troponin & CK Cardiac Panel Stat 12/02/20 13:30 Urine Culture Stat Urine Microscopic Stat Discontinued Medications Sodium Chloride (Normal Saline 0.9%) 1,000 mls @ 1,000 mls/hr IV BOLUS ONE Stop: 12/02/20 13:10 Last Infusion: 12/02/20 14:00 Dose: 0 mls/hr Documented by: Admin: 12/02/20 12:18 Dose: 1,000 mls/hr Documented by: JOMAR Vital Signs Vital signs: Vital Signs - 8 hr 12/02/20 11:56 12/02/20 12:37 12/02/20 13:00 Temperature 98.1 F Pulse Rate 122 H 119 H 122 H Respiratory Rate 24 24 Blood Pressure 108/65 116/68 Pulse Oximetry 95 95 92 12/02/20 13:27 12/02/20 13:30 12/02/20 14:00 Temperature Pulse Rate 103 H 116 H Respiratory Rate 24 22 Blood Pressure 116/71 124/69 Pulse Oximetry 92 12/02/20 14:30 12/02/20 15:00 12/02/20 15:30 Temperature Pulse Rate Respiratory Rate Blood Pressure 112/63 123/61 130/72 Pulse Oximetry 12/02/20 15:35 12/02/20 16:00 12/02/20 16:30 Temperature Pulse Rate 114 H 113 H 119 H Respiratory Rate 24 19 Blood Pressure 131/71 133/69 Pulse Oximetry 96 96 96 <Ranjith Martin DO - Last Filed: 12/02/20 18:35> Orders Ordered: ED Orders 12/02/20 12:10 XR chest 1V Stat EKG-12 Lead Stat 12/02/20 12:21 Complete Blood Count AUTO DIFF Stat Comprehensive Metabolic Panel Stat Lipase Stat Troponin & CK Cardiac Panel Stat 12/02/20 13:30 Urine Culture Stat Urine Microscopic Stat Discontinued Medications Sodium Chloride (Normal Saline 0.9%) 1,000 mls @ 1,000 mls/hr IV BOLUS ONE Stop: 12/02/20 13:10 Last Infusion: 12/02/20 14:00 Dose: 0 mls/hr Documented by: Admin: 12/02/20 12:18 Dose: 1,000 mls/hr Documented by: JOMAR Vital Signs Vital signs: Vital Signs - 8 hr 12/02/20 11:56 12/02/20 12:37 12/02/20 13:00 Temperature 98.1 F Pulse Rate 122 H 119 H 122 H Respiratory Rate 24 24 Blood Pressure 108/65 116/68 Pulse Oximetry 95 95 92 12/02/20 13:27 12/02/20 13:30 12/02/20 14:00 Temperature Pulse Rate 103 H 116 H Respiratory Rate 24 22 Blood Pressure 116/71 124/69 Pulse Oximetry 92 12/02/20 14:30 12/02/20 15:00 12/02/20 15:30 Temperature Pulse Rate Respiratory Rate Blood Pressure 112/63 123/61 130/72 Pulse Oximetry 12/02/20 15:35 12/02/20 16:00 12/02/20 16:30 Temperature Pulse Rate 114 H 113 H 119 H Respiratory Rate 24 19 Blood Pressure 131/71 133/69 Pulse Oximetry 96 96 96 MDM - Fever <Leroy Segovia PA-C - Last Filed: 12/02/20 18:31> Lab Data Result diagrams: 12/02/20 12:21 12/02/20 12:21 Labs: Lab Results 12/02/20 12/02/20 12/02/20 Range/Units 12:21 12:21 13:30 WBC 7.9 (4.5-11.0) X10^3/uL RBC 3.75 L (4.0-5.2) X10^6/uL Hgb 11.8 L (12.0-16.0) g/dL Hct 35.1 L (36-46) % MCV 93.6 (80-100) fL MCH 31.3 (26-34) PG MCHC 33.5 (30-36) % RDW 12.6 (11.6-14.8) % Plt Count 157 (150-400) X10^3/uL Neut % (Auto) 86.1 H (50-75) % Lymph % (Auto) 8.7 L (25-40) % [place] % (Auto) 4.6 (3-14) % Eos % (Auto) 0.3 L (2-4) % Baso % (Auto) 0.3 (0-2) % Neut # (Auto) 6800 (6776-8591) /uL Lymph # (Auto) 700 L (9735-3272) /uL [place] # (Auto) 400 (0-900) /uL Eos # (Auto) 0 (0-450) /uL Baso # (Auto) 0 (0-100) /uL Sodium 132 L (137-145) mmol/L Potassium 3.8 (3.4-5.1) mmol/L Chloride 105 (98-107) mmol/L Carbon Dioxide 18 L (22-32) mmol/L BUN 6 L (7-17) mg/dL Creatinine 0.51 L (0.52-1.04) mg/dL Estimated GFR > 60.0 (>60) mL/min BUN/Creatinine Ratio 11.8 (6-22) Glucose 117 H (70-100) mg/dL Calcium 9.1 (8.4-10.2) mg/dL Total Bilirubin 0.9 (0.2-1.3) mg/dL AST 70 H (14-36) IU/L ALT 27 (<35) IU/L Alkaline Phosphatase 158 H (38-126) U/L Total Creatine Kinase 258 H (30-135) U/L CK-MB (CK-2) 0.27 (<2.37) ng/mL CK-MB (CK-2) Rel Index 0.1 L (1.5-5.0) % Troponin I < 0.012 (0.01-0.034) ng/mL Total Protein 7.0 (6.3-8.2) g/dL Albumin 3.6 (3.5-5.0) g/dL Globulin 3.4 (1.7-4.1) g/dL Albumin/Globulin Ratio 1.1 (1.0-2.8) Lipase 83 (23-300) U/L Urine RBC None seen (0-5/HPF) Urine WBC 1-5/hpf (0-5/HPF) Ur Squamous Epith Cells 1-5 /hpf (0-5/HPF) Urine Bacteria Moderate (10-30) H (None) Ur Culture Indicated? Culture not indicate Urine Dip Bedside Urine Glucose Negative Bedside Urine Bilirubin - Negative Bedside Urine Ketone +++ 80 Urine Specific [place] 1.010 Bedside Urine Occult Blood - Negative Bedside Urine pH 6.0 Bedside Urine Protein - Negative Bedside Urine Urobilinogen - Negative Bedside Urine Nitrite - Negative Bedside Urine Leukocytes + 70 Esterase MDM Narrative Medical decision making narrative: Lula is a well-appearing 30-year-old f emale with no significant past medical history was 35 weeks and has evidence of COVID pneumonia. She is oxygenating well and does not have any significant difficulty breathing or chest pain. She is not having any abdominal pain, vaginal bleeding or other signs of possible complications at this time. Given her tachycardia, COVID diagnosis and status PE was considered. However, she is not having any significant chest pain or shortness of breath at this time. She does not have any clinical evidence of DVT. I discussed her presentation and workup with both her PCP and her OB and they are both on board for outpatient management at this time. Strict ER return pr ecautions were discussed with the patient. Patient verbalizes understanding and agrees to plan and has no further concerns at this time. Thank you A [id number] system was used with the dictation of this note. Please disregard any spelling or grammatical errors. <Ranjith Martin, DO - Last Filed: 08/18/21 18:35> Lab Data Labs: Lab Results 12/02/20 12/02/20 12/02/20 Range/Units 12:21 12:21 13:30 WBC 7.9 (4.5-11.0) X10^3/uL RBC 3.75 L (4.0-5.2) X10^6/uL Hgb 11.8 L (12.0-16.0) g/dL Hct 35.1 L (36-46) % MCV 93.6 (80-100) fL MCH 31.3 (26-34) PG MCHC 33.5 (30-36) % RDW 12.6 (11.6-14.8) % Plt Count 157 (150-400) X10^3/uL Neut % (Auto) 86.1 H (50-75) % Lymph % (Auto) 8.7 L (25-40) % [place] % (Auto) 4.6 (3-14) % Eos % (Auto) 0.3 L (2-4) % Baso % (Auto) 0.3 (0-2) % Neut # (Auto) 6800 (3842-8954) /uL Lymph # (Auto) 700 L (3798-8785) /uL [place] # (Auto) 400 (0-900) /uL Eos # (Auto) 0 (0-450) /uL Baso # (Auto) 0 (0-100) /uL Sodium 132 L (137-145) mmol/L Potassium 3.8 (3.4-5.1) mmol/L Chloride 105 (98-107) mmol/L Carbon Dioxide 18 L (22-32) mmol/L BUN 6 L (7-17) mg/dL Creatinine 0.51 L (0.52-1.04) mg/dL Estimated GFR > 60.0 (>60) mL/min BUN/Creatinine Ratio 11.8 (6-22) Glucose 117 H (70-100) mg/dL Calcium 9.1 (8.4-10.2) mg/dL Total Bilirubin 0.9 (0.2-1.3) mg/dL AST 70 H (14-36) IU/L ALT 27 (<35) IU/L Alkaline Phosphatase 158 H (38-126) U/L Total Creatine Kinase 258 H (30-135) U/L CK-MB (CK-2) 0.27 (<2.37) ng/mL CK-MB (CK-2) Rel Index 0.1 L (1.5-5.0) % Troponin I < 0.012 (0.01-0.034) ng/mL Total Protein 7.0 (6.3-8.2) g/dL Albumin 3.6 (3.5-5.0) g/dL Globulin 3.4 (1.7-4.1) g/dL Albumin/Globulin Ratio 1.1 (1.0-2.8) Lipase 83 (23-300) U/L Urine RBC None seen (0-5/HPF) Urine WBC 1-5/hpf (0-5/HPF) Ur Squamous Epith Cells 1-5 /hpf (0-5/HPF) Urine Bacteria Moderate (10-30) H (None) Ur Culture Indicated? Culture not indicate Urine Dip Bedside Urine Glucose Negative Bedside Urine Bilirubin - Negative Bedside Urine Ketone +++ 80 Urine Specific [place] 1.010 Bedside Urine Occult Blood - Negative Bedside Urine pH 6.0 Bedside Urine Protein - Negative Bedside Urine Urobilinogen - Negative Bedside Urine Nitrite - Negative Bedside Urine Leukocytes + 70 Esterase Discharge Plan Departure Patient Disposition: Home Clinical Impression: COVID-19, 2019 novel coronavirus-infected pneumonia (NCIP) Qualifiers: Weeks of gestation: 35 weeks Qualified Code(s): Z3A.35 - 35 weeks gestation of Instructions: DI for COVID-19 (Suspected or Confirmed ) Activity Restrictions/Additional Instructions: It was nice to meet you with this afternoon. Your evaluation has been re assuring at this time. We spoke with Dr. Goldberg as well as Dr. Roberson and they are both aware of your visit here today. Dr. Roberson is expecting a phone call to arrange a follow-up appointment. Reviewed experience any worsening chest tightness, shortness of breath or any other acute concerns or complaints do not hesitate to return to the emergency department for re-evaluation. Thank you Leroy Segovia PA-C Prescriptions: No Action prenat.vits,ange,dow-cyqh-qelhj tablet 2 tab PO DAILY RF: 0 (DME) Double Electric Breast Pump See Rx Instructions .Route .MEDSUPPLY Qty: 1 RF: 0 Referrals: Matt Sky MD [Primary Care Provider] - <Ranjith Martin DO - Last Filed: 12/02/20 18:35> Cosign ED Attending Cosignature Attestation: Dr Martin Co-Sign Statement: I was available for consultation during this patient's emergency department visit. This chart is signed by myself for administrative purposes only. I did not have direct contact with this patient during this visit. They were seen independently by the APC.
[2020-12-02 13:13] LABS: Troponin I < 0.012 ng/mL (0.01-0.034)
[2020-12-02 13:17] LABS: CKMB % Relative Index 0.1 % (1.5-5.0); Creatine Kinase MB 0.27 ng/mL (<2.37)
[2020-12-02 13:38] LABS: RBC Urine None Seen (0-5/HPF)
[2020-12-02 14:06] LABS: Bacteria Urine Moderate (10-30); Squamous Epithelial Cell Urine 1-5 /HPF (0-5/HPF); WBC Urine 1-5/HPF (0-5/HPF)
--- NOTE | 2020-12-02 16:24 | PC.NURSE ---
Non stress test performed in ED by [facility] RN[facility]. FHR Category 1, reactive tracing. Reported to . Strip saved in pt's Medical Records.
== END 2020-12-02 16:58 | disposition home or self-care (01) ==
PROVIDERS: Emergency Provider Physician Assistant; PCP Student in an Organized Health Care Education/Training Program
DX: U07.1 COVID-19 (principal); J12.82 Pneumonia due to coronavirus disease 2019; Z3A.35 35 weeks gestation of pregnancy
CPT/HCPCS: 36415; 71045; 80053; 81003; 81015; 82550; 82553; 83690; 84484; 85025; 87077; 87086; 93005; 93010; 96360; 96361; 99284

== ENCOUNTER 2020-12-03 15:40 | Emergency (ER) | payer OTHER, SELFPAY ==
[2020-12-03] VITALS (11 sets, daily range): BP systolic 108–120; BP diastolic 58–69; PULSE 97–119; RESP 24–32; TEMP 36.8; O2SAT 88–98
[2020-12-03 16:25] LABS: Lactate (Lactic Acid) 0.9 mmol/L (0.7-2.1); Lactate Dehydrogenase 1079 U/L (313-618)
[2020-12-03 16:27] LABS: Alanine Aminotransferase 33 IU/L (<35); Albumin 3.6 g/dL (3.5-5.0); Alkaline Phosphatase 171 U/L (38-126); Aspartate Aminotransferase 87 IU/L (14-36); BUN Creatinine Ratio 9.4 (6-22); Bilirubin Total 1.2 mg/dL (0.2-1.3); Blood Urea Nitrogen 5 mg/dL (7-17); Carbon Dioxide 16 mmol/L (22-32); Chloride 107 mmol/L (98-107); Creatine Kinase 559 U/L (30-135); D Dimer 794 ng/mL (<230); Estimated Glomerular Filt Rate > 60.0 mL/min (>60); Globulin 3.5 g/dL (1.7-4.1); Glucose 73 mg/dL (70-100); HEMOLYSIS < 15 (0-50); Sodium 135 mmol/L (137-145); Total Protein 7.1 g/dL (6.3-8.2)
[2020-12-03 16:37] LABS: NT-proBNP (BNP-Adult 18+) < 11 pg/mL (<125); Troponin I < 0.012 ng/mL (0.01-0.034)
--- NOTE | 2020-12-03 16:37 | ED_ITS ---
HPI - SOB/Dyspnea <Leroy Segovia PA-C - Last Filed: 12/04/20 19:22> General Chief Complaint: Shortness of Breath/Dyspnea Stated Complaint: COVID POSITIVE SOB Time Seen by Provider: 12/03/20 16:08 Source: patient Mode of arrival: Ambulatory Limitations: no limitations History of Present Illness HPI Narrative: Lula is a otherwise healthy 30-year-old female who is 35 weeks and and was recently diagnosed with COVID. She was seen here yesterday in our emergency department and found to have bilateral pneumonia on x-ray. She was saturating well on room air and after consultation with her PCP and Ob, we elected to discharge home with outpatient follow-up. Overnight, her symptoms of shortness of breath and fatigue have worsened. She also reports worsening weakness. She reports that all she wants to do is just sleep. She was measuring her oxygen levels at home and noted the lowest number to be 88%. She denies any overt chest pain or abdominal pain at this time. She also denies any vaginal bleeding or cramping. She has not taken any antipyretics yet today. Related Data Home Medications Medication Instructions Recorded Confirmed prenat.vits,ange,[id number] 2 tab PO DAILY 03/14/18 12/03/20 Previous Rx's Medication Instructions Recorded Double Electric Breast Pump #1 ea 10/01/20 Allergies Allergy/AdvReac Type Severity Reaction Status Date / Time clindamycin Allergy Severe Rash Verified 12/02/20 12:00 SURGICAL GLUE Allergy Intermediate Rash Uncoded 08/06/20 09:44 Review of Systems <Leroy Segovia PA-C - Last Filed: 12/04/20 19:22> Review of Systems Narrative: As per HPI Patient History <Leroy Segovia PA-C - Last Filed: 12/04/20 19:22> Medical History (Updated 12/04/20 @ 02:00 by Mariam Lechuga RN) Anemia (~07/2019) Chicken pox (~1994) Cholelithiasis Ectopic (~2013) Ectopic , tubal (~02/2014) Elevated cholesterol (~04/2014) Gallstones (~11/2019) Headache, migraine (~2015) History of irregular menstrual cycles Pruritus Rash UTI (urinary tract infection) (~04/2020) Vaginal delivery (07/18/19) Surgical History (Updated 06/05/20 @ 13:57 by Miranda Smith RN) Anesthesia History of laparoscopy (~02/2014) Hx laparoscopic cholecystectomy (~11/2019) Family History (Updated 06/05/20 @ 14:45 by Miranda Smith RN) Father Hypertension Mother Lung cancer Grandmother Lung cancer Smoker Diabetes mellitus Grandfather Triplet Grandmother Unknown family medical history Grandfather No problems noted. Family/Other Diabetes mellitus Social History marital status: number of children: 1 household members: spouse and children lives independently: Yes caregiver/support person: No housing: house pets and animals: Yes (1 dog: safe/aware. ) education level: college (BA Accounting.) occupational status: employed current occupational exposures/hazards: No andre/taoism: [employer] special andre needs: No seatbelt use: always do you feel safe at home: Yes Smoking Status: Never smoker second hand exposure: No alcohol intake: former (None since , prior to 2018. ) substance use type: does not use during the past year weight has: decreased > 10 lbs (r/t gall bladder issues. ) well-balanced diet: daily or most days daily servings fruits/ve-4 caffeine: Yes (Decaf, occasional tea. ) Type(s) of exercise: walking frequency: 3-4 times per week duration: 15-30 minutes/day Smoking Status: Never smoker alcohol intake frequency: 0-2 drinks per day Substance Use Type: does not use Exam <Leroy Segovia PA-C - Last Filed: 12/04/20 19:22> Narrative Exam Narrative: Const General: cooperative, healthy appearing, comfortable and no acute distress Nutritional Appearance: average body habitus and well nourished Orientation: alert and oriented x3 HENMT Head: normal to inspection and normocephalic Ears: hearing grossly normal bilaterally, external ears normal, TM's normal bi laterally, EAC's normal, mastoids normal and no periauricular adenopathy Nose: external nose normal, nares normal and no nasal discharge Face and sinus: normal facial exam, sinuses nontender and face symmetric Mouth: oral mucosae normal, lip normal, tongue normal and moist mucous membranes Teeth and gingiva: dentition normal and gingiva normal Throat: posterior oropharynx normal, uvula midline, no postnasal drainage and no uvular edema Eyes periorbital findings normal, eyelids normal, conjunctivae normal Neck: normal visual inspection, full ROM, no lymphadenopathy, no meningeal signs and supple Resp Slightly increased respiratory effort, able to speak in complete sentences, bilateral rales noted. Cardio Tachycardic rate regular rhythm Heart Sounds: no gallops, no murmurs and no rubs GI Nontender to palpation, movement noted. Extrem normal to inspection, no pedal edema and no calf tenderness Neuro Alert and Oriented x3, normal gait, moves all extremities. Initial Vital Signs Initial Vital Signs: Vital Signs Temperature 98.2 F 12/03/20 15:46 Pulse Rate 112 H 12/03/20 15:46 Respiratory Rate 24 12/03/20 15:46 Blood Pressure 116/61 12/03/20 15:46 Pulse Oximetry 94 12/03/20 15:46 <Charity Bueno DO - Last Filed: 12/04/20 03:02> Initial Vital Signs Initial Vital Signs: Vital Signs Temperature 98.2 F 12/03/20 15:46 Pulse Rate 112 H 12/03/20 15:46 Respiratory Rate 24 12/03/20 15:46 Blood Pressure 116/61 12/03/20 15:46 Pulse Oximetry 94 12/03/20 15:46 Course <Leroy Segovia PA-C - Last Filed: 12/04/20 19:22> Course Course Narrative: 193: I just spoke with Dr. Almanzar who is an OB at for possible transfer. He agreed that this patient would benefit from transfer but they are full this time. They do not have the ability to take anymore patient's. We will look for alternate bed for this patient at this time. Orders Ordered: Discontinued Medications Dexamethasone (Dexamethasone 10 Mg/Ml Vial) 6 mg IV NOW ONE Stop: 12/03/20 19:41 Last Admin: 12/03/20 19:53 Dose: 6 mg Documented by: ARYAN Ondansetron HCl (Ondansetron 4 Mg/2 Ml Inj) 4 mg IV NOW ONE Stop: 12/03/20 16:27 Last Admin: 12/03/20 16:42 Dose: 4 mg Documented by: CHEKO Vital Signs Vital signs: Vital Signs - 8 hr 12/03/20 20:18 12/03/20 22:10 Pulse Rate 101 H 113 H Respiratory Rate 28 H 28 H Blood Pressure 113/65 Pulse Oximetry 94 93 <Charity Bueno DO - Last Filed: 12/04/20 03:02> Orders Ordered: Discontinued Medications Dexamethasone (Dexamethasone 10 Mg/Ml Vial) 6 mg IV NOW ONE Stop: 12/03/20 19:41 Last Admin: 12/03/20 19:53 Dose: 6 mg Documented by: ARYAN Ondansetron HCl (Ondansetron 4 Mg/2 Ml Inj) 4 mg IV NOW ONE Stop: 12/03/20 16:27 Last Admin: 12/03/20 16:42 Dose: 4 mg Documented by: CHEKO Vital Signs Vital signs: Vital Signs - 8 hr 12/03/20 20:18 12/03/20 22:10 Pulse Rate 101 H 113 H Respiratory Rate 28 H 28 H Blood Pressure 113/65 Pulse Oximetry 94 93 MDM - SOB/Dyspnea <Leroy Segovia PA-C - Last Filed: 12/04/20 19:22> Lab Data Result diagrams: 12/03/20 16:04 12/03/20 16:04 Labs: Lab Results 12/03/20 12/03/20 12/03/20 Range/Units 16:04 16:04 16:04 WBC (4.5-11.0) X10^3/uL RBC (4.0-5.2) X10^6/uL Hgb (12.0-16.0) g/dL Hct (36-46) % MCV (80-100) fL MCH (26-34) PG MCHC (30-36) % RDW (11.6-14.8) % Plt Count (150-400) X10^3/uL Neut % (Auto) (50-75) % Lymph % (Auto) (25-40) % [place] % (Auto) (3-14) % Eos % (Auto) (2-4) % Baso % (Auto) (0-2) % Neut # (Auto) (5119-9656) /uL Lymph # (Auto) (8203-5353) /uL [place] # (Auto) (0-900) /uL Eos # (Auto) (0-450) /uL Baso # (Auto) (0-100) /uL D-Dimer 794 H (<230) ng/mL Sodium 135 L (137-145) mmol/L Potassium 4.0 (3.4-5.1) mmol/L Chloride 107 (98-107) mmol/L Carbon Dioxide 16 L (22-32) mmol/L BUN 5 L (7-17) mg/dL Creatinine 0.53 (0.52-1.04) mg/dL Estimated GFR > 60.0 (>60) mL/min BUN/Creatinine Ratio 9.4 (6-22) Glucose 73 (70-100) mg/dL Lactate 0.9 (0.7-2.1) mmol/L Calcium 9.0 (8.4-10.2) mg/dL Ferritin 296 H (6-137) ng/mL Total Bilirubin 1.2 (0.2-1.3) mg/dL AST 87 H (14-36) IU/L ALT 33 (<35) IU/L Alkaline Phosphatase 171 H (38-126) U/L Lactate Dehydrogenase (313-618) U/L Total Creatine Kinase 559 H D (30-135) U/L CK-MB (CK-2) 0.78 (<2.37) ng/mL CK-MB (CK-2) Rel Index 0.1 L (1.5-5.0) % Troponin I < 0.012 (0.01-0.034) ng/mL C-Reactive Protein 15.0 H (<1.0) mg/dL NT-Pro-B Natriuret Pep < 11 (<125) pg/mL Total Protein 7.1 (6.3-8.2) g/dL Albumin 3.6 (3.5-5.0) g/dL Globulin 3.5 (1.7-4.1) g/dL Albumin/Globulin Ratio 1.0 (1.0-2.8) Procalcitonin 0.50 (<0.5) ng/mL Urine RBC (0-5/HPF) Urine WBC (0-5/HPF) Ur Squamous Epith Cells (0-5/HPF) Amorphous Sediment Urine Bacteria (None) Ur Culture Indicated? SARS-CoV-2 (PCR) (Negative) 12/03/20 12/03/20 12/03/20 Range/Units 16:04 16:04 20:00 WBC 9.6 (4.5-11.0) X10^3/uL RBC 3.83 L (4.0-5.2) X10^6/uL Hgb 12.1 (12.0-16.0) g/dL Hct 36.0 (36-46) % MCV 94.1 (80-100) fL MCH 31.6 (26-34) PG MCHC 33.6 (30-36) % RDW 12.6 (11.6-14.8) % Plt Count 183 (150-400) X10^3/uL Neut % (Auto) 82.3 H (50-75) % Lymph % (Auto) 9.9 L (25-40) % [place] % (Auto) 7.1 (3-14) % Eos % (Auto) 0.4 L (2-4) % Baso % (Auto) 0.3 (0-2) % Neut # (Auto) 7900 H (9733-2641) /uL Lymph # (Auto) 900 L (6475-9631) /uL [place] # (Auto) 700 (0-900) /uL Eos # (Auto) 0 (0-450) /uL Baso # (Auto) 0 (0-100) /uL D-Dimer (<230) ng/mL Sodium (137-145) mmol/L Potassium (3.4-5.1) mmol/L Chloride (98-107) mmol/L Carbon Dioxide (22-32) mmol/L BUN (7-17) mg/dL Creatinine (0.52-1.04) mg/dL Estimated GFR (>60) mL/min BUN/Creatinine Ratio (6-22) Glucose (70-100) mg/dL Lactate (0.7-2.1) mmol/L Calcium (8.4-10.2) mg/dL Ferritin (6-137) ng/mL Total Bilirubin (0.2-1.3) mg/dL AST (14-36) IU/L ALT (<35) IU/L Alkaline Phosphatase (38-126) U/L Lactate Dehydrogenase 1079 H (313-618) U/L Total Creatine Kinase (30-135) U/L CK-MB (CK-2) (<2.37) ng/mL CK-MB (CK-2) Rel Index (1.5-5.0) % Troponin I (0.01-0.034) ng/mL C-Reactive Protein (<1.0) mg/dL NT-Pro-B Natriuret Pep (<125) pg/mL Total Protein (6.3-8.2) g/dL Albumin (3.5-5.0) g/dL Globulin (1.7-4.1) g/dL Albumin/Globulin Ratio (1.0-2.8) Procalcitonin (<0.5) ng/mL Urine RBC (0-5/HPF) Urine WBC (0-5/HPF) Ur Squamous Epith Cells (0-5/HPF) Amorphous Sediment Urine Bacteria (None) Ur Culture Indicated? SARS-CoV-2 (PCR) Positive H (Negative) 12/03/20 Range/Units 20:26 WBC (4.5-11.0) X10^3/uL RBC (4.0-5.2) X10^6/uL Hgb (12.0-16.0) g/dL Hct (36-46) % MCV (80-100) fL MCH (26-34) PG MCHC (30-36) % RDW (11.6-14.8) % Plt Count (150-400) X10^3/uL Neut % (Auto) (50-75) % Lymph % (Auto) (25-40) % [place] % (Auto) (3-14) % Eos % (Auto) (2-4) % Baso % (Auto) (0-2) % Neut # (Auto) (1201-7563) /uL Lymph # (Auto) (0073-0056) /uL [place] # (Auto) (0-900) /uL Eos # (Auto) (0-450) /uL Baso # (Auto) (0-100) /uL D-Dimer (<230) ng/mL Sodium (137-145) mmol/L Potassium (3.4-5.1) mmol/L Chloride (98-107) mmol/L Carbon Dioxide (22-32) mmol/L BUN (7-17) mg/dL Creatinine (0.52-1.04) mg/dL Estimated GFR (>60) mL/min BUN/Creatinine Ratio (6-22) Glucose (70-100) mg/dL Lactate (0.7-2.1) mmol/L Calcium (8.4-10.2) mg/dL Ferritin (6-137) ng/mL Total Bilirubin (0.2-1.3) mg/dL AST (14-36) IU/L ALT (<35) IU/L Alkaline Phosphatase (38-126) U/L Lactate Dehydrogenase (313-618) U/L Total Creatine Kinase (30-135) U/L CK-MB (CK-2) (<2.37) ng/mL CK-MB (CK-2) Rel Index (1.5-5.0) % Troponin I (0.01-0.034) ng/mL C-Reactive Protein (<1.0) mg/dL NT-Pro-B Natriuret Pep (<125) pg/mL Total Protein (6.3-8.2) g/dL Albumin (3.5-5.0) g/dL Globulin (1.7-4.1) g/dL Albumin/Globulin Ratio (1.0-2.8) Procalcitonin (<0.5) ng/mL Urine RBC None seen (0-5/HPF) Urine WBC 5-10/hpf H (0-5/HPF) Ur Squamous Epith Cells 5-10 /hpf H (0-5/HPF) Amorphous Sediment 1+ Urine Bacteria Moderate (10-30) H (None) Ur Culture Indicated? Specimen cultured SARS-CoV-2 (PCR) (Negative) <Charity Bueno, DO - Last Filed: 12/04/20 03:02> Lab Data Labs: Lab Results 12/03/20 12/03/20 12/03/20 Range/Units 16:04 16:04 16:04 WBC (4.5-11.0) X10^3/uL RBC (4.0-5.2) X10^6/uL Hgb (12.0-16.0) g/dL Hct (36-46) % MCV (80-100) fL MCH (26-34) PG MCHC (30-36) % RDW (11.6-14.8) % Plt Count (150-400) X10^3/uL Neut % (Auto) (50-75) % Lymph % (Auto) (25-40) % [place] % (Auto) (3-14) % Eos % (Auto) (2-4) % Baso % (Auto) (0-2) % Neut # (Auto) (5050-2750) /uL Lymph # (Auto) (7382-0317) /uL [place] # (Auto) (0-900) /uL Eos # (Auto) (0-450) /uL Baso # (Auto) (0-100) /uL D-Dimer 794 H (<230) ng/mL Sodium 135 L (137-145) mmol/L Potassium 4.0 (3.4-5.1) mmol/L Chloride 107 (98-107) mmol/L Carbon Dioxide 16 L (22-32) mmol/L BUN 5 L (7-17) mg/dL Creatinine 0.53 (0.52-1.04) mg/dL Estimated GFR > 60.0 (>60) mL/min BUN/Creatinine Ratio 9.4 (6-22) Glucose 73 (70-100) mg/dL Lactate 0.9 (0.7-2.1) mmol/L Calcium 9.0 (8.4-10.2) mg/dL Ferritin 296 H (6-137) ng/mL Total Bilirubin 1.2 (0.2-1.3) mg/dL AST 87 H (14-36) IU/L ALT 33 (<35) IU/L Alkaline Phosphatase 171 H (38-126) U/L Lactate Dehydrogenase (313-618) U/L Total Creatine Kinase 559 H D (30-135) U/L CK-MB (CK-2) 0.78 (<2.37) ng/mL CK-MB (CK-2) Rel Index 0.1 L (1.5-5.0) % Troponin I < 0.012 (0.01-0.034) ng/mL C-Reactive Protein 15.0 H (<1.0) mg/dL NT-Pro-B Natriuret Pep < 11 (<125) pg/mL Total Protein 7.1 (6.3-8.2) g/dL Albumin 3.6 (3.5-5.0) g/dL Globulin 3.5 (1.7-4.1) g/dL Albumin/Globulin Ratio 1.0 (1.0-2.8) Procalcitonin 0.50 (<0.5) ng/mL Urine RBC (0-5/HPF) Urine WBC (0-5/HPF) Ur Squamous Epith Cells (0-5/HPF) Amorphous Sediment Urine Bacteria (None) Ur Culture Indicated? SARS-CoV-2 (PCR) (Negative) 12/03/20 12/03/20 12/03/20 Range/Units 16:04 16:04 20:00 WBC 9.6 (4.5-11.0) X10^3/uL RBC 3.83 L (4.0-5.2) X10^6/uL Hgb 12.1 (12.0-16.0) g/dL Hct 36.0 (36-46) % MCV 94.1 (80-100) fL MCH 31.6 (26-34) PG MCHC 33.6 (30-36) % RDW 12.6 (11.6-14.8) % Plt Count 183 (150-400) X10^3/uL Neut % (Auto) 82.3 H (50-75) % Lymph % (Auto) 9.9 L (25-40) % [place] % (Auto) 7.1 (3-14) % Eos % (Auto) 0.4 L (2-4) % Baso % (Auto) 0.3 (0-2) % Neut # (Auto) 7900 H (5112-8871) /uL Lymph # (Auto) 900 L (4743-0660) /uL [place] # (Auto) 700 (0-900) /uL Eos # (Auto) 0 (0-450) /uL Baso # (Auto) 0 (0-100) /uL D-Dimer (<230) ng/mL Sodium (137-145) mmol/L Potassium (3.4-5.1) mmol/L Chloride (98-107) mmol/L Carbon Dioxide (22-32) mmol/L BUN (7-17) mg/dL Creatinine (0.52-1.04) mg/dL Estimated GFR (>60) mL/min BUN/Creatinine Ratio (6-22) Glucose (70-100) mg/dL Lactate (0.7-2.1) mmol/L Calcium (8.4-10.2) mg/dL Ferritin (6-137) ng/mL Total Bilirubin (0.2-1.3) mg/dL AST (14-36) IU/L ALT (<35) IU/L Alkaline Phosphatase (38-126) U/L Lactate Dehydrogenase 1079 H (313-618) U/L Total Creatine Kinase (30-135) U/L CK-MB (CK-2) (<2.37) ng/mL CK-MB (CK-2) Rel Index (1.5-5.0) % Troponin I (0.01-0.034) ng/mL C-Reactive Protein (<1.0) mg/dL NT-Pro-B Natriuret Pep (<125) pg/mL Total Protein (6.3-8.2) g/dL Albumin (3.5-5.0) g/dL Globulin (1.7-4.1) g/dL Albumin/Globulin Ratio (1.0-2.8) Procalcitonin (<0.5) ng/mL Urine RBC (0-5/HPF) Urine WBC (0-5/HPF) Ur Squamous Epith Cells (0-5/HPF) Amorphous Sediment Urine Bacteria (None) Ur Culture Indicated? SARS-CoV-2 (PCR) Positive H (Negative) 12/03/20 Range/Units 20:26 WBC (4.5-11.0) X10^3/uL RBC (4.0-5.2) X10^6/uL Hgb (12.0-16.0) g/dL Hct (36-46) % MCV (80-100) fL MCH (26-34) PG MCHC (30-36) % RDW (11.6-14.8) % Plt Count (150-400) X10^3/uL Neut % (Auto) (50-75) % Lymph % (Auto) (25-40) % [place] % (Auto) (3-14) % Eos % (Auto) (2-4) % Baso % (Auto) (0-2) % Neut # (Auto) (3427-1194) /uL Lymph # (Auto) (7170-2421) /uL [place] # (Auto) (0-900) /uL Eos # (Auto) (0-450) /uL Baso # (Auto) (0-100) /uL D-Dimer (<230) ng/mL Sodium (137-145) mmol/L Potassium (3.4-5.1) mmol/L Chloride (98-107) mmol/L Carbon Dioxide (22-32) mmol/L BUN (7-17) mg/dL Creatinine (0.52-1.04) mg/dL Estimated GFR (>60) mL/min BUN/Creatinine Ratio (6-22) Glucose (70-100) mg/dL Lactate (0.7-2.1) mmol/L Calcium (8.4-10.2) mg/dL Ferritin (6-137) ng/mL Total Bilirubin (0.2-1.3) mg/dL AST (14-36) IU/L ALT (<35) IU/L Alkaline Phosphatase (38-126) U/L Lactate Dehydrogenase (313-618) U/L Total Creatine Kinase (30-135) U/L CK-MB (CK-2) (<2.37) ng/mL CK-MB (CK-2) Rel Index (1.5-5.0) % Troponin I (0.01-0.034) ng/mL C-Reactive Protein (<1.0) mg/dL NT-Pro-B Natriuret Pep (<125) pg/mL Total Protein (6.3-8.2) g/dL Albumin (3.5-5.0) g/dL Globulin (1.7-4.1) g/dL Albumin/Globulin Ratio (1.0-2.8) Procalcitonin (<0.5) ng/mL Urine RBC None seen (0-5/HPF) Urine WBC 5-10/hpf H (0-5/HPF) Ur Squamous Epith Cells 5-10 /hpf H (0-5/HPF) Amorphous Sediment 1+ Urine Bacteria Moderate (10-30) H (None) Ur Culture Indicated? Specimen cultured SARS-CoV-2 (PCR) (Negative) MDM Narrative Medical decision making narrative: A received sign-out from Leroy Merlos, awaiting placement. I have seen evaluated patient. She is resting comfortably on 2 L able to speak in full sentences without difficulty. No problems with this . She is Unfortunately [place] is not higher acuity and they are looking to transfer similar patient. Recommended transferring to [place]. I spoke with maternal medicine provider, who happily accepts patient for transfer. Agrees with dexamethasone and remdesivir for treatment for her COVID. Discharge Plan Departure Patient Disposition: [facility] Clinical Impression: COVID-19, Discharge Date/Time: 12/03/20 22:11 Prescriptions: No Action prenat.vits,ange,[id number] tablet 2 tab PO DAILY RF: 0 (DME) Double Electric Breast Pump See Rx Instructions .Route .MEDSUPPLY Qty: 1 RF: 0 Referrals: Matt Sky MD [Primary Care Provider] - Bambi Goldberg MD [Physician] -
[2020-12-03 16:40] LABS: CKMB % Relative Index 0.1 % (1.5-5.0); Creatine Kinase MB 0.78 ng/mL (<2.37)
[2020-12-03] MEDS: ONDANSETRON 4 MG/2 ML INJ IV (16:42)
[2020-12-03 17:00] LABS: Add Manual Diff / Slide Review NO; Basophils Absolute Auto 0 /uL (0-100); Basophils Percent Auto 0.3 % (0-2); Eosinophils Absolute Auto 0 /uL (0-450); Eosinophils Percent Auto 0.4 % (2-4); Ferritin 296 ng/mL (6-137); Hemoglobin 12.1 g/dL (12.0-16.0); Lymphocytes Absolute Auto 900 /uL (1100-4500); Lymphocytes Percent Auto 9.9 % (25-40); Mean Corpuscular HGB Conc 33.6 % (30-36); Mean Corpuscular Hemoglobin 31.6 PG (26-34); Mean Corpuscular Volume 94.1 fL (80-100); Monocytes Absolute Auto 700 /uL (0-900); Monocytes Percent Auto 7.1 % (3-14); Neutrophils Absolute Auto 7900 /uL (1500-7000); Neutrophils Percent Auto 82.3 % (50-75); Platelet Count 183 X10^3/uL (150-400); Red Blood Cell Count 3.83 X10^6/uL (4.0-5.2); Red Cell Distribution Width 12.6 % (11.6-14.8); White Blood Cell Count 9.6 X10^3/uL (4.5-11.0)
[2020-12-03] MEDS: DEXAMETHASONE 10 MG/ML VIAL 6 MG IV (19:53)
--- NOTE | 2020-12-03 20:01 | PC.NURSE ---
Addendum entered by Ana Ayers R.N. 12/03/20 20:06: NST performed @194 Original Note: This RN called to ED @1909 to perform NST on pt who is covid posititve /symptomatic HR in 120s w 10 X 10 and 15 X 15 accelerations moderate variability no decels Cat 1 w 2 cntxs in 10 min rating then /10 and describing them ads Renato Neely I have had them before they are not strong. Report given to Dr. Goldberg verbally on BC unit
[2020-12-03 20:27] LABS: RBC Urine None Seen (0-5/HPF)
[2020-12-03 20:52] LABS: Amorphous Sediment Urine 1+; Bacteria Urine Moderate (10-30); Squamous Epithelial Cell Urine 5-10 /HPF (0-5/HPF); WBC Urine 5-10/HPF (0-5/HPF)
[2020-12-03 20:53] LABS: Culture Indicated Urine Specimen Cultured
[2020-12-03 21:02] LABS: COVID19 - ADMIT (NP swab/PCR) POSITIVE (Negative)
== END 2020-12-03 22:11 | disposition short-term general hospital (02) ==
PROVIDERS: Emergency Provider Physician Assistant; PCP Student in an Organized Health Care Education/Training Program
DX: O98.513 Other viral diseases complicating pregnancy, third trimester (principal); U07.1 COVID-19; Z3A.35 35 weeks gestation of pregnancy
CPT/HCPCS: 36415; 80053; 81003; 81015; 82550; 82553; 82728; 83605; 83615; 83880; 84145; 84484; 85025; 85379; 86140; 87040; 87086; 87635; 96374; 96375; 99285; C9803; J1100; J2405

== ENCOUNTER 2020-12-16 13:06 | Outpatient (CLI) | payer OTHER, SELFPAY ==
--- NOTE | 2020-12-16 14:23 | PM.OBTRLD ---
Visit Information Visit Information Date of evaluation: 12/16/20 Primary OB Provider: Bambi Goldberg Reason for Evaluation: Yes non-stress test Comments/Additional reasons for admission: Patient just discharged from the hospital for need for 30 L of oxygen for complications from COVID pneumonia. [facility] recommended twice weekly nonstress tests Vital Signs Vital Signs: blood pressure 123/59, pulse 122, temperature 97.2? [facility] Medical History (Updated 12/16/20 @ 15:02 by Bambi Goldberg MD) Anemia (~07/2019) Chicken pox (~1994) Cholelithiasis Ectopic (~2013) Ectopic , tubal (~02/2014) Elevated cholesterol (~04/2014) Gallstones (~11/2019) Headache, migraine (~2015) History of irregular menstrual cycles Pruritus Rash UTI (urinary tract infection) (~04/2020) Vaginal delivery (07/18/19) Surgical History (Updated 06/05/20 @ 13:57 by Miranda Smith RN) Anesthesia History of laparoscopy (~02/2014) Hx laparoscopic cholecystectomy (~11/2019) Family History (Updated 06/05/20 @ 14:45 by Miranda Smith, SYD) Father Hypertension Mother Lung cancer Grandmother Lung cancer Smoker Diabetes mellitus Grandfather Triplet Grandmother Unknown family medical history Grandfather No problems noted. Family/Other Diabetes mellitus Social History marital status: number of children: 1 household members: spouse and children lives independently: Yes caregiver/support person: No housing: house pets and animals: Yes (1 dog: safe/aware. ) education level: college (BA Accounting.) occupational status: employed current occupational exposures/hazards: No andre/buddhism: [employer] special andre needs: No seatbelt use: always do you feel safe at home: Yes Smoking Status: Never smoker second hand exposure: No alcohol intake: former (None since , prior to 2019. ) substance use type: does not use during the past year weight has: decreased > 10 lbs (r/t gall bladder issues. ) well-balanced diet: daily or most days daily servings fruits/ve-4 caffeine: Yes (Decaf, occasional tea. ) Type(s) of exercise: walking frequency: 3-4 times per week duration: 15-30 minutes/day Review of Systems Review of Systems Narrative: Patient states she does not feel lot of shortness of breath but still feels tachycardic. No fevers. Good movement. Mild headache. No scotomata or epigastric pain. Evaluation Evaluation Baseline heart rate: 145 Variability: Moderate (11-25) monitor accelerations: Present Monitor Decelerations: Absent Category of Tracing: Reactive Status: Category l Diagnosis, Plan/Disposition Final Diagnosis (1) 37 weeks gestation of : Status: Acute Plan/Disposition Plan: Patient will continue twice weekly nonstress tests and weekly visits. Precautions reviewed. OB Disposition: home
== END 2020-12-16 14:20 | disposition home or self-care (01) ==
LOC: OB 12-22 12:03
PROVIDERS: PCP Student in an Organized Health Care Education/Training Program; Referring Provider Specialist; Visit Provider Specialist
DX: O26.893 Other specified pregnancy related conditions, third trimester (principal); Z09 Encounter for follow-up examination after completed treatment for conditions other than malignant neoplasm; Z86.16 Personal history of COVID-19; Z3A.37 37 weeks gestation of pregnancy
CPT/HCPCS: 59025; G0378; G0379

== ENCOUNTER 2020-12-18 18:44 | Outpatient (CLI) | payer OTHER, SELFPAY ==
--- NOTE | 2020-12-18 19:21 | P.TNLD_ITS ---
Visit Information Visit Information Date of evaluation: 12/18/20 Primary OB Provider: Bambi Goldberg On-call OB Provider: Abril Araujo Reason for Evaluation: Yes non-stress test non-stress test reason: decreased movement Comments/Additional reasons for admission: 30 year old at 37+4 weeks with recent 10 day hospitalization for COVID-19 pneumonia. She comes in concerned about decreased FM. Denies contractions, leaking or bleeding. She remains tired with a slight cough but otherwise is feeling much better. Vital Signs Vital Signs: T 36.2 BP 113/70 P 108 PFSH Medical History (Updated 12/18/20 @ 19:23 by Abril Araujo DO) Anemia (~07/2019) Chicken pox (~1994) Cholelithiasis Ectopic (~2013) Ectopic , tubal (~02/2014) Elevated cholesterol (~04/2014) Gallstones (~11/2019) Headache, migraine (~2015) History of irregular menstrual cycles Pruritus Rash UTI (urinary tract infection) (~04/2020) Vaginal delivery (07/18/19) Surgical History (Updated 06/05/20 @ 13:57 by Miranda Smith RN) Anesthesia History of laparoscopy (~02/2014) Hx laparoscopic cholecystectomy (~11/2019) Family History (Updated 06/05/20 @ 14:45 by Miranda Smith RN) Father Hypertension Mother Lung cancer Grandmother Lung cancer Smoker Diabetes mellitus Grandfather Triplet Grandmother Unknown family medical history Grandfather No problems noted. Family/Other Diabetes mellitus Social History marital status: number of children: 1 household members: spouse and children lives independently: Yes caregiver/support person: No housing: house pets and animals: Yes (1 dog: safe/aware. ) education level: college (BA Accounting.) occupational status: employed current occupational exposures/hazards: No andre/holiness: [employer] special andre needs: No seatbelt use: always do you feel safe at home: Yes Smoking Status: Never smoker second hand exposure: No alcohol intake: former (None since , prior to 2019. ) substance use type: does not use during the past year weight has: decreased > 10 lbs (r/t gall bladder issues. ) well-balanced diet: daily or most days daily servings fruits/ve-4 caffeine: Yes (Decaf, occasional tea. ) Type(s) of exercise: walking frequency: 3-4 times per week duration: 15-30 minutes/day Evaluation Evaluation Baseline heart rate: 150 Variability: Moderate (11-25) monitor accelerations: Present Monitor Decelerations: Absent Contraction Frequency (minutes): 9 Uterine Contraction Intensity: Mild Category of Tracing: Reactive Diagnosis, Plan/Disposition Final Diagnosis (1) Decreased movement: Status: Acute (2) 37 weeks gestation of : Status: Acute (3) 2018 novel coronavirus-infected pneumonia (NCIP): Status: Acute Plan/Disposition Plan: Reactive NST for decreased FM. She felt more movement while being monitored in the center and was reassured. Continue twice weekly NST due to COVID pneumonia. Follow up with Dr. Goldberg as scheduled. OB Disposition: home
== END 2020-12-18 20:11 | disposition home or self-care (01) ==
LOC: LABOR 18:46 → OB 12-22 12:01
PROVIDERS: PCP Student in an Organized Health Care Education/Training Program; Referring Provider Family Medicine; Visit Provider Family Medicine
DX: O36.8130 Decreased fetal movements, third trimester, not applicable or unspecified (principal); O26.893 Other specified pregnancy related conditions, third trimester; Z3A.37 37 weeks gestation of pregnancy; Z86.16 Personal history of COVID-19
CPT/HCPCS: 59025; G0378; G0379

== ENCOUNTER 2020-12-19 09:44 | Observation (INO) | payer OTHER, SELFPAY ==
--- NOTE | 2020-12-19 10:50 | PM.OBTRLD ---
Visit Information Visit Information Date of evaluation: 12/19/20 Primary OB Provider: Babmi Goldberg On-call OB Provider: Abril Araujo Reason for Evaluation: Yes non-stress test non-stress test reason: other (COVID-19 pneumonia s/p ICU admission for 10 days) Vital Signs Vital Signs: T 36.7 BP 118/65 P 100 PFSH Medical History (Updated 12/19/20 @ 10:52 by Abril Araujo DO) Anemia (~07/2019) Chicken pox (~1994) Cholelithiasis Ectopic (~2013) Ectopic , tubal (~02/2014) Elevated cholesterol (~04/2014) Gallstones (~11/2019) Headache, migraine (~2015) History of irregular menstrual cycles Pruritus Rash UTI (urinary tract infection) (~04/2020) Vaginal delivery (07/18/19) Surgical History (Updated 06/05/20 @ 13:57 by Miranda Smith RN) Anesthesia History of laparoscopy (~02/2014) Hx laparoscopic cholecystectomy (~11/2019) Family History (Updated 06/05/20 @ 14:45 by Miranda Smith RN) Father Hypertension Mother Lung cancer Grandmother Lung cancer Smoker Diabetes mellitus Grandfather Triplet Grandmother Unknown family medical history Grandfather No problems noted. Family/Other Diabetes mellitus Social History marital status: number of children: 1 household members: spouse and children lives independently: Yes caregiver/support person: No housing: house pets and animals: Yes (1 dog: safe/aware. ) education level: college (BA Accounting.) occupational status: employed current occupational exposures/hazards: No andre/spiritism: Congregational special andre needs: No seatbelt use: always do you feel safe at home: Yes Smoking Status: Never smoker second hand exposure: No alcohol intake: former (None since , prior to 2019. ) substance use type: does not use during the past year weight has: decreased > 10 lbs (r/t gall bladder issues. ) well-balanced diet: daily or most days daily servings fruits/ve-4 caffeine: Yes (Decaf, occasional tea. ) Type(s) of exercise: walking frequency: 3-4 times per week duration: 15-30 minutes/day Evaluation Evaluation Baseline heart rate: 140 Variability: Moderate (11-25) monitor accelerations: Present Monitor Decelerations: Absent Uterine Contraction Intensity: Mild Category of Tracing: Reactive Diagnosis, Plan/Disposition Final Diagnosis (1) 37 weeks gestation of : Status: Acute (2) 2018 novel coronavirus-infected pneumonia (NCIP): Status: Acute Plan/Disposition Plan: 30-year-old at 37 weeks and 5 days here for NST due to 10 day admission for COVID-19. She is doing much better now but with lingering cough and fatigue. Reactive NST. Continue twice weekly testing and follow-up with Dr. Goldberg. OB Disposition: home
--- NOTE | 2020-12-19 10:51 | DI.US.S_ITS ---
PROCEDURE: US OB BIOPHYSICAL PROFILE INDICATIONS: RECENT HOSPITALIZATION COVID POSITIVE OUTSIDE/PRIOR DATING DATA: Last menstrual period (LMP): 03/18/2020 LMP-based estimated date of delivery (MINNIE): 01/04/2021 First dating scan (date and location): 06/12/2020 Estimated date of delivery (MINNIE) from first dating scan: 12/31/2020 TECHNIQUE: Real-time scanning was performed of the fetus for biophysical profile, with image documentation. Color and pulse Doppler interrogation was also performed of the umbilical artery near its insertion into the placenta. COMPARISON: [facility], , US OB <= 14 WEEKS FETUS, 06/12/2020, 16:02. [facility], , US OB >= 14 WEEKS FETUS, 10/23/2020, 16:09. FINDINGS: General: A single live intrauterine gestation is present. Presentation: Vertex. Placenta: Placental position is posterior, without previa. Amniotic fluid index: 6.3 cm, normal range is 5-24 cm. heart rate: 133 beats per minute. Maternal cervical canal: Not well seen. Estimated gestational age from initial scan: 30 weeks 2 days. Biophysical profile: Tone: 2 points. Movement: 2 points. Respiration: 2 points. Largest pocket of fluid: 2 points. (Largest pocket, 2.3 cm) IMPRESSION: Normal biophysical profile, 8/8 points. Dictated by: Jameel Kaye M.D. on 12/19/2020 at 11:20 Approved by: Jameel Kaye M.D. on 12/19/2020 at 11:22
== END 2020-12-19 12:19 | disposition home or self-care (01) ==
PROVIDERS: Admitting Provider Specialist; PCP Student in an Organized Health Care Education/Training Program; Referring Provider Specialist; Visit Provider Specialist
DX: O26.893 Other specified pregnancy related conditions, third trimester (principal); Z09 Encounter for follow-up examination after completed treatment for conditions other than malignant neoplasm; Z3A.37 37 weeks gestation of pregnancy; Z86.16 Personal history of COVID-19
CPT/HCPCS: 59025; 59050; 76819; G0378; G0379

== ENCOUNTER 2020-12-22 18:58 | Inpatient (IN) | payer OTHER, SELFPAY ==
--- NOTE | 2020-12-22 19:05 | DI.US.S_ITS ---
PROCEDURE: US OB BIOPHYSICAL PROFILE INDICATIONS: RECENT SEVERE COVID OUTSIDE/PRIOR DATING DATA: Last menstrual period (LMP): 03/18/2020. LMP-based estimated date of delivery (MINNIE): 01/04/2021. First dating scan (date and location): 06/12/2020. Estimated date of delivery (MINNIE) from first dating scan: 12/31/2020. TECHNIQUE: Real-time scanning was performed of the fetus, with image documentation. Biophysical profile was also obtained. Endovaginal scanning: Not performed COMPARISON: [facility], OB BIOPHYSICAL PROFILE, 12/19/2020, 12:00. FINDINGS: General: A single living intrauterine gestation is present. Presentation: Vertex. Placenta: Placental position is right fundal, without previa. Amniotic fluid index: 11 cm, normal range is 5-24 cm. heart rate: 150 beats per minute. Maternal cervical canal: Not well seen. Estimated gestational age from initial scan: 38 weeks 5 days. Biophysical profile: Tone: 2 points. Movement: 2 points. Respiration: 2 points. Largest pocket of fluid: 2 points. IMPRESSION: 1. Xiong living intrauterine at 38 weeks 5 days based on prior ultrasound. Vertex position. 2. Normal placenta and amniotic fluid. 3. Normal biophysical profile. Score 8/8. Dictated by: Amari Lugo M.D. on 12/22/2020 at 21:32 Approved by: Amari Lugo M.D. on 12/22/2020 at 21:34
[2020-12-22 20:44] VITALS: BP 125/72
[2020-12-22 22:07] LABS: Add Manual Diff / Slide Review NO; Basophils Absolute Auto 100 /uL (0-100); Basophils Percent Auto 0.6 % (0-2); Eosinophils Absolute Auto 100 /uL (0-450); Eosinophils Percent Auto 1.2 % (2-4); Hematocrit 33.2 % (36-46); Hemoglobin 11.1 g/dL (12.0-16.0); Lymphocytes Absolute Auto 1600 /uL (1100-4500); Lymphocytes Percent Auto 16.6 % (25-40); Mean Corpuscular HGB Conc 33.4 % (30-36); Mean Corpuscular Volume 95.8 fL (80-100); Monocytes Absolute Auto 900 /uL (0-900); Monocytes Percent Auto 9.2 % (3-14); Neutrophils Absolute Auto 7000 /uL (1500-7000); Neutrophils Percent Auto 72.4 % (50-75); Platelet Count 249 X10^3/uL (150-400); Red Blood Cell Count 3.47 X10^6/uL (4.0-5.2); Red Cell Distribution Width 14.2 % (11.6-14.8); White Blood Cell Count 9.7 X10^3/uL (4.5-11.0)
[2020-12-22] MEDS: DINOPROSTONE VAG (CERVIDIL) 10 MG VAG (23:01)
[2020-12-22 23:03] LABS: COVID19 - ADMIT (NP swab/PCR) POSITIVE (Negative)
[2020-12-23] VITALS (8 sets, daily range): BP systolic 112–136; BP diastolic 47–82; PULSE 106–119; RESP 18–21; TEMP 37.1; O2SAT 98–99
--- NOTE | 2020-12-23 | PATH_ITS ---
[facility] Accession Number: [id number] . 01 Material submitted: . fallopian tube - LEFT FALLOPIAN TUBE . 02 Diagnosis: Left Fallopian Tube: Complete cross section of segment of fallopian tube x1. Negative for atypia or malignancy. [facility] 12/25/2020 1049 Local . 02 Electronically signed: . Olimpia Kam MD, Pathologist NPI- [id number] . 01 Gross description: . The specimen is received in formalin, labeled left fallopian tube and consists of a 1.3 cm in length by 0.6 cm in diameter segment of fallopian tube with a young-pink, focally hemorrhagic serosa. Sectioning reveals a young-pink mucosa and a lumen measuring 0.2 cm in diameter. The specimen is entirely submitted in cassette A1. (EA:[id number]) /[facility] 12/24/2020 1038 Local . 02 Pathologist provided ICD-10: Z30.2 . 02 CPT . 566697 Performed at: 01 [facility] [address] [facility], [place], [place] [id number] MD Torres Piedra MD Phone: [phone] Performed at: 02 [facility] [address] [place], [place] [id number] MD Tosin Nye MD Phone: [phone]
[2020-12-23] MEDS: LACTATED RINGERS 1,000 ML 100 ML IV ×2 (00:42→06:49)
[2020-12-23] MEDS: TERBUTALINE 1 MG/ML VIAL SUBCUT (02:22)
--- NOTE | 2020-12-23 03:38 | PM.PREOP ---
Pre-operative Note COVID-19 COVID-19 status: Positive Result date/Date tested (Pos, Neg/Pending): 12/22/20 Interval Note History & Physical reviewed/Exam performed by Physician: Yes Changes to H&P: Yes H&P completed within 30 days and has changed as indicated here:: intolerance of labor
--- NOTE | 2020-12-23 03:48 | P.HPOB_ITS ---
OB HPI Date/Time Date of admission: 12/22/20 Date Patient Seen: 12/23/20 Time Patient Seen: 03:48 History of Present Condition Chief complaint: OBSERVATION : 3 Para: 1 Narrative: Lula Mendoza is a 30 year old female admitted for induction for concerns. Biophysical profile is normal however NSTs have been reactive but with prolonged episodes of decreased variability and occasional decelerations. Indications Indication for induction OB: nonreassuring APT History of Present care: good care, initiated at week # (8), number of visits (8) and pounds weight gain (30) Dating criteria: based on 1st trimester US only Ultrasounds: normal mid trimester US Obstetrical complications: none Medical complications: respiratory (Positive COVID diagnosis on 11/26/20, 10 days of ICU) Preadmission Labs Blood type: AB (+) positive -: Antibody screen: negative, GBS status: unknown, HBsAG: negative, HIV: negative and RPR/VDLR: negative -: Chlamydia screen: not detected and Gonorrhea screen: not detected -: Rubella: immune and Varicella: immune HCAB: negative Quad screen: Normal 1 hr GTT: 168 3 hr GTT: 1 hr (199), 2 hr (163) and 3 hr (132) Fasting blood glucose: 89 Prior (ies) History: 07/18/2019 vaginal delivery 8 lb 10 oz female Evaluation Evaluation Baseline heart rate: 150 Variability: Average (6-10) monitor accelerations: Episodic Monitor Decelerations: Absent Uterine Contraction Intensity: Mild Category of Tracing: Reactive Status: Category ll Cervical dilation (cm): 0 Cervical effacement (%): 0 station: -4 [facility] Medical History (Updated 12/19/20 @ 10:52 by Abril Araujo DO) Anemia (~07/2019) Chicken pox (~1994) Cholelithiasis Ectopic (~2013) Ectopic , tubal (~02/2014) Elevated cholesterol (~04/2014) Gallstones (~11/2019) Headache, migraine (~2015) History of irregular menstrual cycles Pruritus Rash UTI (urinary tract infection) (~04/2020) Vaginal delivery (07/18/19) Surgical History (Updated 06/05/20 @ 13:57 by Miranda Smith RN) Anesthesia History of laparoscopy (~02/2014) Hx laparoscopic cholecystectomy (~11/2019) Family History (Updated 06/05/20 @ 14:45 by Miranda Smith RN) Father Hypertension Mother Lung cancer Grandmother Lung cancer Smoker Diabetes mellitus Grandfather Triplet Grandmother Unknown family medical history Grandfather No problems noted. Family/Other Diabetes mellitus Social History marital status: number of children: 1 household members: spouse and children lives independently: Yes caregiver/support person: No housing: house pets and animals: Yes (1 dog: safe/aware. ) education level: college (BA Accounting.) occupational status: employed current occupational exposures/hazards: No andre/cheondoism: Jew special andre needs: No seatbelt use: always do you feel safe at home: Yes Smoking Status: Never smoker second hand exposure: No alcohol intake: former (None since , prior to 2019. ) substance use type: does not use during the past year weight has: decreased > 10 lbs (r/t gall bladder issues. ) well-balanced diet: daily or most days daily servings fruits/ve-4 caffeine: Yes (Decaf, occasional tea. ) Type(s) of exercise: walking frequency: 3-4 times per week duration: 15-30 minutes/day Meds Home Medications and Allergies Home Medications Medication Instructions Recorded Confirmed Type prenat.vits,ange,ewn-leaa-uniop 2 tab PO DAILY 03/14/18 12/22/20 History Double Electric Breast Pump #1 ea 10/01/20 11/06/20 Rx Allergies Allergy/AdvReac Type Severity Reaction Status Date / Time clindamycin Allergy Severe Rash Verified 12/02/20 12:00 SURGICAL GLUE Allergy Intermediate Rash Uncoded 08/06/20 09:44 Review of Systems Review of Systems Narrative: Patient denies headaches, scotomata, epigastric pain. Good movement. No leakage of fluid. Renato Neely contractions. Exam Vital Signs (past 8 hours): - Blood pressure 125/72, pulse of 120, temperature 97.6? 12/22/20 20:44 Blood Pressure 125/72 Narrative Exam Narrative: Patient with nonproductive cough, lungs otherwise clear. Heart is tachycardic but regular rate and rhythm. Abdomen is gravid and nontender. Fetus is vertex. Extremities without edema and nontender Objective Labs Result Diagrams: 12/22/20 21:40 Labs: Laboratory Results - last 24 hr 12/22/20 12/22/20 12/22/20 21:40 21:40 21:40 WBC 9.7 RBC 3.47 L Hgb 11.1 L Hct 33.2 L MCV 95.8 MCH 32.0 MCHC 33.4 RDW 14.2 Plt Count 249 Neut % (Auto) 72.4 Lymph % (Auto) 16.6 L [place] % (Auto) 9.2 Eos % (Auto) 1.2 L Baso % (Auto) 0.6 Neut # (Auto) 7000 Lymph # (Auto) 1600 [place] # (Auto) 900 Eos # (Auto) 100 Baso # (Auto) 100 SARS-CoV-2 (PCR) Positive H Blood Type AB Positive Antibody Screen Negative Assessment and Plan Assessment and Plan Assessment and Plan narrative: 38 week gestation in recovery from COVID infection requiring 10 days in the ICU admitted for induction for concerns for well-being. The hope is for vaginal delivery however may end up being required.
[2020-12-23] MEDS: CEFAZOLIN 1 GM VIAL 2 GM IV (04:08)
--- NOTE | 2020-12-23 04:29 | SUR.OPER ---
Supine on Padded OR bed, head on pillow, safety belt at thigh, arms secured on padded arm boards at <90 degrees abduction. Bump under right buttock. Legs uncrossed with pillow under knees, gel pad to heels, tape over blanket to lower legs.
--- NOTE | 2020-12-23 04:42 | SUR.OPER ---
viable baby boy born at 0420, cord blood and placenta sent to OB with OB rn
--- NOTE | 2020-12-23 04:43 | SUR.OPER ---
placenta delivered at 0423
--- NOTE | 2020-12-23 05:16 | SUR.PHASEI ---
CSection recovered in OR due to Covid positive. Alert, denies pain, VSS
--- NOTE | 2020-12-23 05:27 | PM.OBPNLAB ---
Date/Time Date Patient Seen: 12/23/20 Time Patient Seen: 03:30 Pain Control Pain control: tolerating well Pelvic Exam Dilation (cm): 1 Effacement (%): 0 station: -4 Amniotic membrane status: Intact Contractions Contractions on admission: regular Monitor mode: External Contraction frequency (min): 3 Contraction pattern: Regular Contraction intensity: Moderate Status status: Category ll Heart Rate Baseline: 160 Monitor Accelerations: Absent Monitor Decelerations: Episodic and Late Monitor Variability: Minimal Assessment and Plan Plan:
--- NOTE | 2020-12-23 05:30 | P.OP_ITS ---
Operative Date/Time/Diagnoses Date of procedure: 12/23/20 Time of procedure: 05:30 Pre-op diagnosis: intolerance of labor Post-op diagnosis: same Procedure & Clinicians Procedure: Primary low-transverse section with right tubal ligation Same procedure as scheduled: Yes Indications: intolerance of labor Surgeon: Bambi Goldberg Click Yes if Unassisted: Yes Anesthesia Type: Spinal Operative Notes Findings: Normal uterus, status post right salpingectomy, normal ovaries. Viable male with Apgars of 7 and 7. Closure Type: primary Specimen(s): other (Segment of left fallopian tube) Applied: catheter (Salas) Estimated Blood Loss (mL): 550 Blood products transfused: none Procedure in detail: The patient was brought to the operating room where she underwent a spinal for anesthesia. She was placed in a supine position with a left lateral tilt. A Salas catheter was placed. Pulsatile stockings were placed and functional throughout the case. 2 g of Ancef were given IV prior to the incision. Warm ing was in place. The patient was prepped and draped in usual sterile fashion. A low transverse incision was made with a scalpel and the incision was carried down to the fascial layer which was incised transversely with scissors. The midline attachments are superiorly and inferiorly. Some bleeding was controlled Bovie. The rectus muscles were in the midline and the peritoneal incision was made with no damage to internal structures. The peritoneum was incised and superiorly and inferiorly. The incision was stretched with the surgeon and business services assistant placing traction. Bladder blade was placed and a bladder flap was developed and the bladder held away from the lower uterine segment. An incision was made in the uterus with the scalpel and the incision was extended with stretching. The head was elevated out of the abdomen and with fundal pressure by the business services assistant the baby was delivered. The infant was bulb suctioned for meconium-stained fluid and handed off to the warmer. Cord blood was collected. The placenta delivered spontaneously with traction. The uterus was cleaned with clean laps. The uterine incision was closed in 2 layers of 0 chromic suture the first a running locking layer the second an imbricating layer. The bladder peritoneum was repaired with 2-0 Vicryl suture. The left fallopian tube was grasped with the [place] and a segment tied off x2 with 0 plain suture and intervening section removed scissors. Adequate hemostasis was noted. The abdomen was cleaned of any remaining fluids and ovaries were observed to be normal. She was status post right salpingectomy. Adequate hemostasis was noted. The perineum was closed with 2-0 Vicryl suture. The fascia layer was closed with 0 Vicryl suture with 2 stitches. The incision was irrigated and adequate hemostasis noted. The incision was closed with interrupted 3-0 Vicryl sutures. Due to the patient's allergies the skin was closed with renata. Dressing was placed. The uterus was massaged to remove any clots. The patient will be recovered in the OR due to her positive COVID. Counts of instruments and sponges were correct. Complications: none Post-operative Condition: stable Disposition: other ( center) Plan for aftercare: Routine post with droplet isolation for positive COVID
[2020-12-23] MEDS: KETOROLAC 30 MG/ML VIAL IV ×3 (10:47→22:24)
[2020-12-23] MEDS: DOCUSATE 100 MG CAPSULE 200 MG PO (10:54)
[2020-12-23] MEDS: FERROUS SULFATE 325 MG TABLET PO (10:55)
[2020-12-23] MEDS: PRENATAL VIT,CALC/IRON/FOLIC 1 TABLET 1 TAB PO (10:55)
[2020-12-23] MEDS: OXYCODONE IR 5 MG TABLET PO ×2 (13:44→20:43)
[2020-12-23] MEDS: ONDANSETRON 4 MG/2 ML INJ IV (16:31)
[2020-12-24] MEDS: IBUPROFEN 600 MG TABLET PO ×4 (04:23→22:50)
[2020-12-24] MEDS: ACETAMINOPHEN 325 MG TABLET 650 MG PO ×3 (04:23→22:50)
[2020-12-24 07:38] LABS: Add Manual Diff / Slide Review NO; Basophils Absolute Auto 100 /uL (0-100); Basophils Percent Auto 0.5 % (0-2); Eosinophils Absolute Auto 100 /uL (0-450); Eosinophils Percent Auto 1.1 % (2-4); Hemoglobin 7.9 g/dL (12.0-16.0); Lymphocytes Absolute Auto 2500 /uL (1100-4500); Lymphocytes Percent Auto 20.5 % (25-40); Mean Corpuscular Hemoglobin 31.6 PG (26-34); Mean Corpuscular Volume 95.7 fL (80-100); Monocytes Absolute Auto 1000 /uL (0-900); Monocytes Percent Auto 8.2 % (3-14); Neutrophils Absolute Auto 8600 /uL (1500-7000); Neutrophils Percent Auto 69.7 % (50-75); Platelet Count 183 X10^3/uL (150-400); Red Blood Cell Count 2.51 X10^6/uL (4.0-5.2); Red Cell Distribution Width 14.2 % (11.6-14.8); White Blood Cell Count 12.3 X10^3/uL (4.5-11.0)
--- NOTE | 2020-12-24 07:53 | P.PNOB_ITS ---
Subjective - OB Subjective Patient comments: incisional pain and flatus present [place] baby status: other (Baby still requiring glucoses IV and O2 nasal cannula) feeding status: pumping and bottle feeding (The baby is not actively trying to nurse) Date Patient Seen: 12/24/20 Time Patient Seen: 07:55 Interval history: Patient is up moving around. Her Salas catheter was just removed. She is passing gas. She is tolerating regular diet. She feels her breathing is improving. Exam Vital Signs (past 8 hours): Blood pressure 112/61, pulse of 73, temperature 98.2? Oxygen Delivery Method Room Air Narrative Exam Narrative: Abdomen is soft, nontender. Uterus is firm, at U, appropriately tender. Dressing is clean, dry, intact. Mild lochia. Extremities without edema and nontender. Objective Labs Result Diagrams: 12/22/20 21:40 12/24/20 07:20 Assessment & Plan Assessment and Plan (1) Delivery by section using transverse incision of lower segment of uterus: Status: Acute (2) 2019 novel coronavirus-infected pneumonia (NCIP): Status: Acute Plan day: 1 plan OB: routine postop care Time Spent With Patient Time: Total time spent is greater than 50% in coordination of care (as documented) at patient's floor/unit and/or counseling patient: Time with patient: less than 15 minutes
[2020-12-24 08:10] LABS: Alanine Aminotransferase 20 IU/L (<35); Albumin 2.8 g/dL (3.5-5.0); Alkaline Phosphatase 105 U/L (38-126); Aspartate Aminotransferase 31 IU/L (14-36); BUN Creatinine Ratio 24.5 (6-22); Bilirubin Total 0.3 mg/dL (0.2-1.3); Blood Urea Nitrogen 12 mg/dL (7-17); Calcium 8.7 mg/dL (8.4-10.2); Carbon Dioxide 25 mmol/L (22-32); Chloride 102 mmol/L (98-107); Estimated Glomerular Filt Rate > 60.0 mL/min (>60); Globulin 2.8 g/dL (1.7-4.1); Glucose 91 mg/dL (70-100); HEMOLYSIS < 15 (0-50); Sodium 129 mmol/L (137-145); Total Protein 5.6 g/dL (6.3-8.2)
[2020-12-24] MEDS: DOCUSATE 100 MG CAPSULE 200 MG PO (08:11)
[2020-12-24] MEDS: PRENATAL VIT,CALC/IRON/FOLIC 1 TABLET 1 TAB PO (08:11)
[2020-12-24] MEDS: FERROUS SULFATE 325 MG TABLET PO (08:11)
[2020-12-24] MEDS: OXYCODONE IR 5 MG TABLET PO ×3 (09:42→19:00)
[2020-12-24 14:19] VITALS: TEMP 36.9
[2020-12-24 22:50] VITALS: TEMP 37
[2020-12-25] MEDS: OXYCODONE IR 5 MG TABLET PO ×4 (01:22→14:04)
[2020-12-25] MEDS: IBUPROFEN 600 MG TABLET PO (04:33)
--- NOTE | 2020-12-25 07:35 | PM.OBPN.1 ---
Subjective - OB Subjective Patient comments: incisional pain baby status: bottle feeding well [place] feeding status: breast and bottle feeding Narrative: Patient is ambulatory. She is passing gas. She is urinating well. She states her breathing is well although she is having more of a cough. Date Patient Seen: 12/25/20 Time Patient Seen: 07:36 Exam Vital Signs (past 8 hours): Blood pressure 112/57, pulse is 77, temperature 98.7? Oxygen Delivery Method Room Air Narrative Exam Narrative: Abdomen is soft, nontender. Uterus is firm, at U, appropriately tender. Dressing is clean, dry, intact. Mild lochia. Extremities without edema and nontender. Objective Labs Result Diagrams: 12/24/20 07:20 12/24/20 07:20 Labs: Laboratory Results - last 24 hr 12/24/20 12/24/20 07:20 07:20 WBC 12.3 H RBC 2.51 L Hgb 7.9 L Hct 24.0 L MCV 95.7 MCH 31.6 MCHC 33.0 RDW 14.2 Plt Count 183 Neut % (Auto) 69.7 Lymph % (Auto) 20.5 L [place] % (Auto) 8.2 Eos % (Auto) 1.1 L Baso % (Auto) 0.5 Neut # (Auto) 8600 H Lymph # (Auto) 2500 [place] # (Auto) 1000 H Eos # (Auto) 100 Baso # (Auto) 100 Sodium 129 L Potassium 4.0 Chloride 102 Carbon Dioxide 25 BUN 12 Creatinine 0.49 L Estimated GFR > 60.0 BUN/Creatinine Ratio 24.5 H Glucose 91 Calcium 8.7 Total Bilirubin 0.3 AST 31 ALT 20 Alkaline Phosphatase 105 Total Protein 5.6 L Albumin 2.8 L Globulin 2.8 Albumin/Globulin Ratio 1.0 Assessment & Plan Assessment and Plan (1) Delivery by section using transverse incision of lower segment of uterus: Status: Acute (2) 2019 novel coronavirus-infected pneumonia (NCIP): Status: Acute Plan day: 2 plan OB: routine postop care Time Spent With Patient Time: Total time spent is greater than 50% in coordination of care (as documented) at patient's floor/unit and/or counseling patient: Time with patient: less than 15 minutes
[2020-12-25] MEDS: PRENATAL VIT,CALC/IRON/FOLIC 1 TABLET 1 TAB PO (09:05)
[2020-12-25] MEDS: ACETAMINOPHEN 325 MG TABLET 650 MG PO (09:05)
[2020-12-25] MEDS: DOCUSATE 100 MG CAPSULE 200 MG PO (09:06)
[2020-12-25] MEDS: FERROUS SULFATE 325 MG TABLET PO (09:06)
[2020-12-25 14:15] VITALS: BP 135/82; PULSE 115; RESP 18; TEMP 37
--- NOTE | 2020-12-29 13:33 | PM.OBDS.1 ---
Discharge Providers Provider Date of admission: 12/22/20 18:58 Discharge Date: 12/25/20 Primary care physician: Matt Sky MD Consults: 12/22/20 20:22 Consult to Anesthesiology Urgent Comment: Consulting Provider: Anesthesiologist Reason for consultation: Epidural Has provider been notified: No 12/23/20 06:48 Consult to [place] [employer] Routine Comment: 12/24/20 21:35 Consult to [employer] Routine Comment: Discharge provider: Bambi Goldberg MD Summary Hospital Course Date Patient Seen: 12/25/20 Time Patient Seen: 13:00 Diagnoses: 38 week gestation with primary section after failed induction for nonreassuring monitoring due to intolerance of labor. COVID positive. Wish for sterilization. Hospital Course: Patient was admitted for Cervidil induction for concerns about well-being. The fetus did not tolerate labor so decision was made to proceed with section. The patient is urinating and ambulating well. She is passing gas. She is breast and bottle feeding. Her pain is under control. She denies headaches, scotomata, epigastric pain. Her breathing is improving. She continues to have a cough from her COVID. Peripartum Data Delivery Method: Section ( intolerance of labor) Procedures: Cervidil induction, primary low-transverse section with sterilization by tubal ligation. complications: none 1: Gender: Male Disposition of : home Discharge Diagnosis (1) Delivery by section using transverse incision of lower segment of uterus: Status: Acute (2) 2019 novel coronavirus-infected pneumonia (NCIP): Status: Acute (3) Sterilization: Status: Acute Status at Discharge Cognitive/behavioral status at discharge: oriented Functional status at discharge: independent ambulation Overall status at discharge: patient is progressing back to baseline Time Spent with Patient Time attestation: Total time spent providing and/or coordinating discharge services: Time spent: Less than 30 minutes Objective Labs Result Diagrams: 12/24/20 07:20 12/24/20 07:20 Exam Vital Signs (past 8 hours): Blood pressure 112/57, pulse 77, temperature 98.7? Oxygen Delivery Method Room Air Narrative Exam Narrative: Lungs are clear to auscultation percussion. Heart is regular rate and rhythm no S3-S4 murmurs. Abdomen is soft, nontender with no palpable organomegaly. Uterus is firm, at U, mildly tender. Incision is clean, dry, intact. Mild lochia. Extremities with +1 edema and nontender. Discharge Plan Discharge Plan Patient Disposition: Home Discharge orders & Medications Prescriptions: New docusate sodium 100 mg Capsule 100 mg PO BID Qty: 30 RF: 0 ferrous sulfate 325 mg (65 mg iron) Tablet 325 mg PO DAILY Qty: 30 RF: 0 ibuprofen 600 mg Tablet 600 mg PO Q6H PRN (Reason: Fever/Mild Pain (1-3)) Qty: 30 RF: 0 oxycodone 5 mg Tablet 5 mg PO Q4H PRN (Reason: Pain, Moderate (4-6)) Qty: 30 RF: 0 Continued prenat.vits,ange,uod-firo-zrnec tablet 2 tab PO DAILY RF: 0 No Action (DME) Double Electric Breast Pump See Rx Instructions .Route .MEDSUPPLY Qty: 1 RF: 0 Follow up/Referrals: Matt Sky MD [Primary Care Provider] - Bambi Goldberg MD [Physician] - 1 Week (Staple removal) Diet/Activity/Treatments Diet: Regular Activity: Nothing in vagina or lifting over 20 lb for 6 weeks Skin/Wound/Dressing Care Report to your healthcare provider any signs of infection, such as:: chills, fever, increased pain and unusual redness Dressing: Cover if wishes no dressing needed Visit Report/Discharge Packet Stand Alone Forms: Discharge: Care Discharge Data Primary Care Provider: Matt Sky
== END 2020-12-25 14:39 | disposition home or self-care (01) | DRG 783 ==
PROVIDERS: Admitting Provider Specialist; PCP Student in an Organized Health Care Education/Training Program; Referring Provider Specialist; Visit Provider Specialist
PROC: 10D00Z1 Extraction of Products of Conception, Low, Open Approach (ICD-10-PCS; CPT 59514; principal; 2020-12-23 04:15)
DX: O98.52 Other viral diseases complicating childbirth (principal); U07.1 COVID-19; J12.82 Pneumonia due to coronavirus disease 2019; Z3A.38 38 weeks gestation of pregnancy; Z37.0 Single live birth; Z30.2 Encounter for sterilization; O61.9 Failed induction of labor, unspecified; O36.8330 Maternal care for abnormalities of the fetal heart rate or rhythm, third trimester, not applicable or unspecified; O77.8 Labor and delivery complicated by other evidence of fetal stress
CPT/HCPCS: 36415; 58611; 59050; 59200; 59510; 76819; 80053; 85025; 86850; 86900; 86901; 87635; C9803; G0379; J0690; J1100; J1885; J2274; J2405; J2590

== ENCOUNTER → 2021-02-01 13:57 | Outpatient (CLI) | payer OTHER, SELFPAY ==
[2021-02-01 14:40] LABS: Hemoglobin 12.6 g/dL (12.0-16.0); Mean Corpuscular HGB Conc 33.3 % (30-36); Mean Corpuscular Hemoglobin 30.9 PG (26-34); Mean Corpuscular Volume 92.8 fL (80-100); Platelet Count 339 X10^3/uL (150-400); Red Blood Cell Count 4.09 X10^6/uL (4.0-5.2); Red Cell Distribution Width 12.9 % (11.6-14.8); White Blood Cell Count 6.4 X10^3/uL (4.5-11.0)
[2021-02-01 15:53] LABS: Alanine Aminotransferase 39 IU/L (<35); Albumin 4.5 g/dL (3.5-5.0); Albumin Globulin Ratio 1.6 (1.0-2.8); Alkaline Phosphatase 73 U/L (38-126); Aspartate Aminotransferase 35 IU/L (14-36); Bilirubin Total 0.4 mg/dL (0.2-1.3); Bilirubin Unconjugated 0.4 mg/dL (0.0-1.1); Globulin 2.9 g/dL (1.7-4.1); HEMOLYSIS < 15 (0-50); Total Protein 7.4 g/dL (6.3-8.2)
== END ==
PROVIDERS: PCP Student in an Organized Health Care Education/Training Program; Referring Provider Student in an Organized Health Care Education/Training Program; Visit Provider Student in an Organized Health Care Education/Training Program
DX: D64.9 Anemia, unspecified (principal); R79.89 Other specified abnormal findings of blood chemistry
CPT/HCPCS: 36415; 80076; 85027